=== PATIENT | female | born 1945 | race Caucasian/White ===

== ENCOUNTER 2017-03-04 22:31 | Observation (INO) | payer MEDICARE ==
[2017-03-04 23:51] LABS: BASOPHILS 0.2 % (0-2); EOSINOPHILS 1.2 % (0-7); HEMATOCRIT 41.7 % (36.0-48.0); HEMOGLOBIN 13.5 g/dL (12-16); IMMATURE GRANULOCYTES 0.2 % (0-5); MCH 30.9 pg (26.0-34.0); MCHC 32.4 g/dL (31.0-37.0); MCV 95.4 fL (80.0-100.0); MEAN PLATELET VOLUME 10.1 fL (7.4-10.4); MONOCYTES 6.8 % (2-11); NEUTROPHILS 75.6 % (40-80); PLATELET COUNT 231 10x3/uL (130-400); RBC 4.37 10x6/uL (4.00-5.40); RDW 13.6 % (11.5-14.5); WBC 10.5 10x3/uL (4.8-10.8)
[2017-03-05 00:07] LABS: ALBUMIN 3.1 g/dL (3.4-5.0); ALKALINE PHOSPHATASE 93 U/L (46-116); ALT (SGPT) 17 U/L (10-68); BILIRUBIN - TOTAL 0.36 mg/dL (0.2-1.3); CALC OSMOLALITY 290 mosm/kg (275-300); CARBON DIOXIDE 29.4 mmol/L (21.0-32.0); CHLORIDE - SERUM 104 mmol/L (98-107); CREATININE - SERUM 1.1 mg/dL (0.6-1.3); GLUCOSE 268 mg/dL (74-106); PROTEIN - SERUM 7.3 g/dL (6.4-8.2); SODIUM 139 mmol/L (136-145); UREA NITROGEN 25 mg/dL (7-18); eGFR NON AFRICAN AMERICAN 52 mL/min (90-120)
[2017-03-05 00:19] LABS: CKMB 0.6 U/L (0.0-3.6); CREATINE KINASE 34 UL (21-215); MAGNESIUM - SERUM 1.9 mg/dL (1.8-2.4); THYROID STIMULATING HORMONE 9.68 uIU/mL (0.36-3.74); TROPONIN-I < 0.017 ng/mL (0.000-0.060)
[2017-03-05 00:28] VITALS: BP 154/54
--- NOTE | 2017-03-05 00:52 | NUR ---
RECEIVED FROM ER, PT IS ALERT AND ORIENTED, PT IS UP AB BARI, IV- LAC-SL, VITALS ARE STABLE, BED IS LOW, SRX2, CALL LIGHT IN REACH, WILL CONTINUE TO MONITOR
[2017-03-05] MEDS ORDERED: PRAVACHOL20 MG PO (01:20)
[2017-03-05] MEDS ORDERED: GLIMEPIRIDE4 MG PO (01:21)
[2017-03-05] MEDS ORDERED: PLAVIX75 MG PO (01:22)
[2017-03-05] MEDS ORDERED: COREG12.5 MG PO (01:23)
[2017-03-05] MEDS ORDERED: CELEXA10 MG PO (01:24)
[2017-03-05] MEDS ORDERED: SYNTHROID75 MCG PO (01:25)
[2017-03-05] MEDS ORDERED: VITAMIN B COMPL1 TAB PO (01:25)
[2017-03-05] MEDS ORDERED: VITAMIN D31000 UNIT PO (01:26)
[2017-03-05 04:13] VITALS: BP 177/71
--- NOTE | 2017-03-05 04:23 | NUR ---
PT RESTING, CALL LIGHT IN REACH, SRX1, WILL MONITOR
[2017-03-05 07:08] LABS: CKMB 0.5 U/L (0.0-3.6); CREATINE KINASE 24 UL (21-215); TROPONIN-I < 0.017 ng/mL (0.000-0.060)
[2017-03-05 08:36] VITALS: BP 183/75
--- NOTE | 2017-03-05 09:43 | NUR ---
RESTING QUIETLY NAD NOTED
--- NOTE | 2017-03-05 11:01 | NUR ---
UP IN ROOM. DENIES ANY NEEDS. CALL LIGHT IN REACH. TELEMERTY SHOWS SR
[2017-03-05 11:28] VITALS: BP 154/66
[2017-03-05 12:57] LABS: CKMB 0.6 U/L (0.0-3.6); CREATINE KINASE 27 UL (21-215); TROPONIN-I < 0.017 ng/mL (0.000-0.060)
[2017-03-05] MEDS ORDERED: ISOSORBIDE MONO30 M1 PO (13:00)
--- NOTE | 2017-03-05 17:02 | NUR ---
PT DISCHARGED. IV DCD AND INSTRUCTIONS GIVEN. TO PRIVATE CAR PER WHEEL CHAIR
--- NOTE | 2017-03-06 10:14 | CN ---
PATIENT NAME:NADYA CALLAHAN MEDICAL RECORD: [id number] : 45 LOCATION:[facility].2122 ADMIT DATE: 03/05/17 ACCOUNT: [id number] CONSULTING PHYSICIAN: VERN NEGRO MD REFERRING PHYSICIAN: SEPIDEH WATSON MD DATE OF CONSULTATION: 03/05/2017 HISTORY OF PRESENT ILLNESS: Nadya Callahan is a 71-year-old female with a known history of coronary artery disease, status post intervention. She has a history of hypertension, recently moved here from [place], [place]. She then intermittently had problems with compliance secondary to financial issues. Her has just recently qualified for disability and this appears ____. She presented to the ER with chest pain relieved with nitroglycerin. Enzymes were negative. ECG was without acute changes. We are asked to see her concerning her cardiovascular status. PAST MEDICAL HISTORY: Includes: 1. History of coronary artery disease. 2. Diabetes mellitus. 3. Hypertension. 4. Dyslipidemia. 5. Hypothyroidism, on replacement. MEDICATIONS: Include Synthroid 75 mcg daily, Amaryl 4 mg half tab b.i.d., pravastatin 20 mg daily, carvedilol 12.5 mg b.i.d. and Plavix 75 mg daily. ALLERGIES: SULFA AND LATEX. SOCIAL HISTORY: She lives here in town, moved here from [place]. She takes care of her ADLs. Nonsmoker. REVIEW OF SYSTEMS: The patient reports easy bruising but reports no swollen glands. The patient reports no fever, no night sweats, no significant weight gain, no significant weight loss. No significant exercise tolerance. The patient reports no dry eyes, no irritation, no vision change. Patient reports no difficulty hearing and no ear pain. Patient reports no frequent nose bleeds or nose and sinus problems. Patient reports on arm pain on exertion. No shortness of breath while lying down. No history of heart murmur. Patient reports no cough, no wheezing or coughing up blood. Patient reports no abdominal pain, no vomiting. Normal appetite. No diarrhea and not vomiting blood. No nausea and no constipation. Patient reports no incontinence. No difficulty urinating. No hematuria. No increased frequency. Patient reports no muscle aches. No weakness, no arthralgias, no back pain. No swelling of the extremities. Patient reports no abnormal mole, no jaundice, no rashes. Reports no loss of consciousness. No weakness and no numbness. No seizures, dizziness, or headaches. The patient reports no depression, no sleep disturbance, feeling safe in a relationship and no alcohol abuse. Patient reports on fatigue. Reports no runny nose or sinus pressure. No itching, no hives, and no frequent sneezing. PHYSICAL EXAMINATION: GENERAL: Pleasant female in no acute distress. VITAL SIGNS: Blood pressure 183/75, pulse 63 and regular. HEENT: Normocephalic, atraumatic. NECK: No JVD or bruits. CONSULT REPORT [id number] NADYA CALLAHAN HEART: Regular. II/ systolic ejection murmur. ABDOMEN: Soft and nontender. EXTREMITIES: Pulses 2+ with no edema. NEUROLOGICAL: Grossly intact. DIAGNOSTIC DATA: ECG without acute change. Enzymes are negative. LABORATORY DATA: Significant for elevated TSH, although again, she has not been able to afford this on a regular basis. IMPRESSION: At this point in time, I discussed options with the patient. She prefers medical management. Certainly, given her negative ECG and enzymes, I have no problems with this. We will start Imdur 30 mg p.o. daily. I will see her back in the office in ____ 3 weeks. If still having angina, could revisit angiography that time. TRANSINT:[id number] Voice Confirmation ID: [id number] DOCUMENT ID: [id number] VERN NEGRO MD at 1014 CC: [id number] DICTATION DATE: 03/05/17920 CONTACT LENS BLOCKER AND CUTTER: 03/05/171856 DIS IN 03/05/17 [facility] [address] [place] [address]
== END 2017-03-05 17:18 | disposition home or self-care (01) ==
LOC: D.ER 22:31 → OBSVTIME 03-05 00:16 → D.M2 03-05 00:16
PROVIDERS: Emergency Medicine; ADMIT Family Medicine Adult Medicine
DX: R07.9 Chest pain, unspecified (principal); I25.10 Atherosclerotic heart disease of native coronary artery without angina pectoris; Z95.5 Presence of coronary angioplasty implant and graft; I10 Essential (primary) hypertension; E11.9 Type 2 diabetes mellitus without complications; E78.5 Hyperlipidemia, unspecified; E03.9 Hypothyroidism, unspecified; Z91.14 Patient's other noncompliance with medication regimen; F41.8 Other specified anxiety disorders

== ENCOUNTER 2018-01-21 18:21 | Emergency (ER) | payer MEDICARE ==
[~2018-01-21 18:21] MED LIST: CELEXA10 MG PO; COREG12.5 MG PO; GLIMEPIRIDE4 MG PO; ISOSORBIDE MONO30 M1 PO; PLAVIX75 MG PO; PRAVACHOL20 MG PO; SYNTHROID75 MCG PO; VITAMIN B COMPL1 TAB PO; VITAMIN D31000 UNIT PO
== END 2018-01-21 20:14 | disposition home or self-care (01) ==
LOC: D.ER 18:21
DX: J06.9 Acute upper respiratory infection, unspecified (principal); J20.9 Acute bronchitis, unspecified; E11.9 Type 2 diabetes mellitus without complications; I10 Essential (primary) hypertension

== ENCOUNTER 2018-07-04 09:58 | Outpatient (CLI) | payer MEDICARE ==
[~2018-07-04] VITALS: Ht 154.9 cm; Wt 111.1 kg
--- NOTE | ~2018-07-04 | CN ---
PATIENT NAME:JOLLY CALLAHAN MEDICAL RECORD: [id number] : 45 LOCATION:[facility] D.2108 ADMIT DATE: 07/04/18 ACCOUNT: [id number] CONSULTING PHYSICIAN: YANIRA OCHOA MD REFERRING PHYSICIAN: BLU GONZALEZ MD DATE OF CONSULTATION: 07/04/2018 CARDIOLOGY CONSULT DIAGNOSES: 1. Angina, unstable. 2. Coronary disease. 3. Previous PTCA and stent in 2010 at [place]. 4. Shortness of breath and dyspnea on exertion. 5. Hypertension. 6. Hyperlipidemia. 7. Noninsulin-dependent diabetes. HISTORY: Mrs. Callahan presents with increasing anginal symptomatology as well as shortness of breath over the past month. She does have history of coronary disease, previous PTCA and stent in [place] in 2010. Her EKG shows ST-T abnormalities in the lateral leads. PHYSICAL EXAMINATION: GENERAL APPEARANCE: Well-nourished, well-developed, appears stated age. Level of distress, comfortable. PSYCHIATRIC: Mental status, alert, normal affect. Orientation, oriented to time, place and person. EYES: Lids and conjunctiva, noninjected. No discharge, no pallor. ENT: Lips, teeth, gums, normal dentition. Oropharynx, no cyanosis, no pallor. NECK: Carotid arteries, bilateral normal upstroke, no bruits, no thrills. JUGULAR VEINS: No jugular venous pressure or distention. CERVICAL LYMPH NODES: Nontender, nonenlarged. THYROID: Not enlarged. Nontender. No nodules. LUNGS: Respiratory effort, unlabored. CHEST: Normal curvature. No thoracic deformity. No chest wall tenderness. Percussion, resonant. Auscultation, clear. No wheezes, no rales, no rhonchi. CARDIOVASCULAR: Precordial exam, nondisplaced. No heaves or pericardial thrills. Rate and rhythm, regular. Heart sounds, normal S1, normal S2. No S3, no gallop, no rub. Systolic murmur, not heard. Diastolic murmur, not heard. EXTREMITIES: No cyanosis, no edema. Peripheral pulses, full and equal in all extremities, except as noted. No bruits appreciated. ABDOMEN: Soft, nondistended. Normal aorta. No bruit. Nontender. No masses. Liver, nontender, no hepatomegaly. Spleen, nontender, no splenomegaly. MUSCULOSKELETAL: No joint tenderness. No joint swelling. No erythema. NEUROLOGICAL: Normal gait, normal strength, normal tone. SKIN: Warm and dry. OVERALL IMPRESSION: Anginal symptomatology in an increasing fashion. We will proceed with coronary angiography. Further care depends upon findings of the angiography. TRANSINT:[id number] Voice Confirmation ID: [id number] DOCUMENT ID: [id number] CONSULT REPORT [id number] JOLLY CALLAHAN JEFFREY MD at 1950 CC: [id number] DICTATION DATE: 07/04/18 1311 CLOTHING PATTERN PREPARER: 07/04/18 1329 DIS IN 07/06/18 [facility] [address] [place] [address]
--- NOTE | ~2018-07-04 | OP ---
PATIENT NAME: JOLLY CALLAHAN MEDICAL RECORD: [id number] :45 LOCATION:D.M2 D.2108 ADMISSION DATE:07/04/18 SURGEON: YANIRA OCHOA MD DATE OF OPERATION: 07/05/2018 PROCEDURES: 1. PTCA stent LAD. 2. PTCA diagonal. 3. Left heart catheterization. 4. Selective coronary angiography. 5. Left ventriculogram. INDICATION: Angina and coronary artery disease. PROCEDURE IN DETAIL: After informed consent was obtained and after a detailed description of the risks, benefits as well as alternative therapies, the patient elected to proceed with angiogram and angioplasty. The right femoral area was prepped and draped in normal sterile fashion. Right femoral artery was cannulated via modified Seldinger technique with placement of 6-English sheath. All catheters exchanged through this sheath. FINDINGS: The left ventriculogram was performed in standard 30-degree MATTA view, reveals inferoapical hypokinesis. Overall ejection fraction 40%. SELECTIVE CORONARY ANGIOGRAPHY: 1. Left main is with no significant angiographic disease. 2. Left anterior descending has previously placed stents. There is 80% stenosis proximal to the previously placed stent. The diagonal has 90% stenosis and then there is a second 90% stenosis in the mid LAD. 3. Left circumflex has moderate irregularities, but no flow-limiting stenosis. 4. The right coronary artery has previously placed stents, these are totally occluded. The distal right coronary fills via left to right collateral. PTCA STENT OF THE LAD: The stents used were 3.0 x 18 and 2.5 x 22. These are both [place] stents. The diagonal was addressed with a 2.0 balloon. Result was 0% residual throughout. OVERALL IMPRESSION: Successful percutaneous transluminal coronary angioplasty stent of the left anterior descending going from 90% initial stenosis to 0% residual. TRANSINT:[id number] Voice Confirmation ID: [id number] DOCUMENT ID: [id number] YANIRA OCHOA MD at 1950 CC: [id number] DICTATION DATE: 07/05/18 1326 RESEARCH AND INSIGHTS EXECUTIVE: 07/05/18 1343 DIS IN 07/06/18 [place] [address]
--- NOTE | ~2018-07-04 | EC ---
PATIENT:JOLLY CALLAHAN DATE OF SERVICE: 07/04/18 SEX: F MEDICAL RECORD: [id number] DATE OF : 45 LOCATION:D.M2 D.210 AGE OF PATIENT: 73 ADMISSION DATE: 07/04/18 REFERRING PHYSICIAN: INTERPRETING PHYSICIAN: YANIRA SHEA MD ECHOCARDIOGRAM REPORT ECHO CHARGES 4 ECHO COMPLETE Date: 07/04/18 CLINICAL DIAGNOSIS: CHF ECHOCARDIOGRAPHIC MEASUREMENTS (adult normal given) AC root (d.<3.7cm) 3.2 cm LV Septum d (<1.2 cm> 1.6 cm Valve Excursion 1.4 cm LV Septum (systole) 1.7 cm Left Atria (s.<4.0cm> 3.9 cm LVPW d(<1.2cm) 1.3 cm RV (d.<2.3cm) 3.3 cm LVPW (sytole) 1.6 cm LV diastole(<5.6CM) 6.0 cm MV E-F(>70mm/sec) cm LV systole 4.7 cm LVOT Diameter 1.7 cm MV exc.(>10mm) cm Est.ejection fraction (50-75%) % DOPPLER: LVIT cm/sec A 51.0 cm/sec E 101 cm/sec LA cm/sec RVSP 46 mmHg LVOT 98 cm/sec AOP1/2T m/s Asc. Ao 129 cm/sec RVOT 79 cm/sec RA cm/sec PA 93 cm/sec AV Gradient Peak 6.86 mmHg AV Mean 3.021mmHg AV Area 1.9 cm MV Gradient Peak 6.36 mmHg MV Mean 2.15 mmHg MV Area cm COMMENTS: Outside Sales Executive: Buddy ANTHONY Sandblaster Paint Sprayer: 1 Dr. Shea TAPE# PACS Pericardial Effusion N DATE OF SERVICE: 07/04/2018 ECHOCARDIOGRAM FINDINGS: 1. Left ventricular chamber size is mildly dilated. Left ventricular systolic function is normal. Overall ejection fraction estimated at 55%. 2. Left atrium is within normal limits at 3.9 cm. Right atrium and right ventricle chamber sizes are upper limits of normal. 3. Valvular structures have normal structure and motion. ECHOCARDIOGRAM REPORT [id number] JOLLY CALLAHAN 4. Doppler interrogation reveals mild mitral regurgitation, mild tricuspid regurgitation, no other valvular insufficiency or stenosis; however, pulmonary systolic pressure is mildly elevated estimated at 46 mmHg. 5. No evidence of pericardial effusion or left ventricular thrombus. TRANSINT:[id number] Voice Confirmation ID: [id number] DOCUMENT ID: [id number] YANIRA SHEA MD at 1950 CC: [id number] DICTATION DATE: 07/04/18 1638 COOK FISH EGGS: 07/04/18 1646 DIS IN 07/06/18 [facility] [address] [place] [id number]
--- NOTE | ~2018-07-04 | HEMODYNAMI ---
PATIENT:JOLLY CALLAHAN MEDICAL RECORD: [id number] : 45 [facility] ADMISSION DATE: 07/04/18 Generatedon:07/06/201810:46 Patient name: JOLLY CALLAHAN Patient #: [id number] SSN: D OB: 1945 Date of study: 07/05/2018 Page: Of Hemodynamic Procedure Report Patient Data Patient Demographics Procedure consent was obtained First Name: JOLLY Gender: Female Last Name: L[place]ON : 1945 Patient #: [id number] Age: 73 year(s) Race: Unknown Additional ID: [id number] Contact details Address: [address] [place] [address] State: [place] City: [facility] Zip code: [address] Past Medical History Allergies Allergen Reaction Date Comments Reported Other allergy 07/05/2018 SULFA, LATEX, NATURAL RUBBER Admission Admission Data Admission Date: 05/10/2018 Admission Time: 11:00 Room #: D.2108 Lab Results Lab Result Date: 07/05/2018 Lab Result Time: 0:00 Biochemistry Name Units Result Min Max BUN mg/dl 23 --(----)-* 7 18 Creatinine mg/dl 0.9 --(-*--)-- 0.6 1.3 CBC Name Units Result Min Max Hemoglobin g/dl 12.5 *-(----)-- 13.5 17.5 Procedure Procedure Types Cath Procedure Diagnostic Procedure C [facility] w/Coronaries PCI Procedure Coronary Stent Coronary Stent Initial PTCA PTCA Additional Procedure Description Procedure Date Procedure Date: 07/05/2018 Procedure Start Time: 13:04 Procedure End Time: 13:26 Procedure Staff Name Function Luciana De Jesus RT Monitor Kenney Cole RN Nurse Stephan Shea MD Performing Physician Kathi Soler RT Scrub Jarrod Mcgee RT High School Business Teacher Jarrod Mcgee RT Monitor Procedure Data Cath Procedure Fluoroscopy Diagnostic fluoroscopy Total fluoroscopy Time: 5.9 time: 5.9 min min Diagnostic fluoroscopy Total fluoroscopy dose: dose: 1272 mGy 1272 mGy Contrast Material Contrast Material Type Amount (ml) Isovue 300 142 Entry Location Entry Primary Successful Side Size Upsize Upsize Entry Closure Succes sful Closure Location (Fr) 1 (Fr) 2 (Fr) Remarks Device Remarks Femoral Right 5 Fr Exoseal artery Diagnostic catheters Device Type Used For End Catheter Placement MULTIPACK Pigtail 5 Fr LV Angiography catheter MULTIPACK JL 4.0 5Fr Left Coronary catheter Angiography MULTIPACK 3DRC 5Fr Right Coronary catheter Angiography Procedure Complications No complications Procedure Medications Medication Administration Route Dosage Heparin Flush Bag added to field 2 bags (1000units/500ml NS) Oxygen etCO2 Nasal cannula 2 l/min Lidocaine 2% added to field 4 ml Plavix P.O. 75 mg Versed I.V. 1 mg Fentanyl I.V. 50 mcg Heparin Bolus I.V. 4000 units Versed I.V. 1 mg Fentanyl I.V. 50 mcg Hemodynamics Rest HGB: 12.5 (g/dl) Heart Rate: 82 (bpm) Snapshots Pre Cath Intra NCS Post Cath Vital Signs Time Heart Resp SPO2 etCO2 NIBP (mmHg) Rhythm Pain Sedation Rate (ipm) (%) (mmHg) Status Level (bpm) 12:33:27 66 21 98 0 172/93(146) A-Flutter 0 (11) 10(A) , No pain 12:38:26 80 15 98 0 176/103(151) A-Flutter 0 (11) 10(A) , No pain 12:43:27 85 21 99 0 178/105(153) A-Flutter 0 (11) 10(A) , No pain 12:48:29 81 15 100 0 184/105(146) A-Flutter 0 (11) 10(A) , No pain 12:53:26 77 14 97 0 147/82(120) A-Flutter 0 (11) 10(A) , No pain 12:58:20 78 14 94 0 156/86(132) A-Flutter 0 (11) 10(A) , No pain 13:03:07 77 15 96 0 124/75(110) A-Flutter 0 (11) 9(A) , No pain 13:07:54 67 14 97 0.7 141/86(123) A-Flutter 0 (11) 9(A) , No pain 13:12:45 80 13 97 3 156/91(136) A-Flutter 0 (11) 9(A) , No pain 13:17:42 81 14 98 0 161/83(133) A-Flutter 0 (11) 9(A) , No pain 13:22:39 80 27 99 0 173/95(150) A-Flutter 0 (11) 10(A) , No pain 13:26:14 78 15 98 17.2 171/83(118) A-Flutter 0 (11) 10(A) , No pain Medications Time Medication Route Dose Verified Delivered Reason Notes Effectiveness by by 12:49:31 Heparin Flush added 2 Buffie used for Bag to bags Cole generator switchboard operator (1000units/500ml field NS) 12:49:57 Oxygen etCO2 2 Buffie used for Nasal l/min Kelsey generator switchboard operator cannula 12:50:20 Lidocaine 2% added 4 ml Buffie used for to Kelsey generator switchboard operator field 12:58:12 Plavix P.O. 75 mg Stephan Blairie for Shabbir Cole RN antiplatelet therapy 13:00:48 Versed I.V. 1 mg Stephan Buffie for sedation Shabbir Cole RN 13:00:54 Fentanyl I.V. 50 Stephan Buffie for sedation mcg Shabbir Cole RN 13:06:05 Versed I.V. 1 mg Stephan Buffie for sedation Shabbir Cole RN 13:06:08 Fentanyl I.V. 50 Stephanallison Pintoie for sedation mcg Shabbir Cole RN 13:10:27 Heparin Bolus I.V. 4000 Stephan Buffie for verif ied units Shabbir Cole RN anticoagulation with dr shea Procedure Log Time Note 11:57:14 Signed procedure consent form obtained from patient. 11:57:15 Time tracking: Regular hours (M-F 7:00 - 5:00) 11:57:19 Plan of Care:Hemodynamics will remain stable., Cardiac rhythm will remain stable., Comfort level will be maintained., Respiratory function will remain adequate., Patient/ family verbilizes understanding of procedure., Procedure tolerated without complication., Recovers from procedure without complications.. 11:57:57 H&P Date Dictated: 07/04/2018 Within 30 days and on chart.. 12:00:36 Patient allergic to Other allergySULFA, LATEX, NATURAL RUBBER 12::16 Lab Result : Hemoglobin 12.5 g/dl 12::16 Lab Result : Creatinine 0.9 mg/dl 12::16 Lab Result : BUN 23 mg/dl 12:08:30 Kathi Soler RT(R) sent for patient. Start room use. 12:28:14 Patient received from Med II to CCL 1 Alert and oriented. Tansferred to table in Supine position. 12:28:16 Correct patient and procedure confirmed by team. 12:28:16 Warm blankets applied, and jaspreet hugger turned on for patient comfort. 12:28:17 ECG and BP/O2 sat monitors applied to patient. 12:29:13 FAILED JUAN MANUEL'S 12:30:42 Vital chart was started 12:30:43 Full Disclosure recording started 12:34:51 Baseline sample Acquired. 12:35:28 Baseline sample Acquired. 12:35:33 Rhythm: atrial flutter 12:35:43 Pre-procedure instructions explained to patient. 12:35:44 Pre-op teaching completed and patient verbalized understanding. 12:36:36 Family in patients room. 12:36:39 Patient NPO since Midnight. 12:36:41 Is the patient allergic to Iodine/contrast media? No. 12:36:44 Was the patient premedicated? No 12:40:12 Is patient on blood thinner?Unknown 12:40:14 Patient diabetic? Yes. 12:40:16 If diabetic: On Metformin? No 12:40:17 ----Pre-sedation anethsthesia assessment.---- 12:40:20 Previous problem with sedation/anesthesia? No ? 12:40:22 Snore? No 12:40:23 Sleep apnea? No 12:40:25 Deviated septum? No 12:40:26 Opens mouth fully? Yes 12:40:27 Sticks out tongue? Yes 12:40:29 Airway obstruction? No ? 12:40:33 Dentures? No ? 12:40:35 Pre procedure: right dorsailis pedis pulse 1+ Palpable, but thready & weak; easily obliterated 12:40:43 Modified Juan Manuel's test Ulnar > 7 seconds. 12:40:47 Patient pain scale 0/10 ?. 12:40:56 IV patent on arrival in left forearm with 0.9% NaCl at 10ml/hr. 12:41:01 Lab results completed and on chart. 12:41:05 Right groin area was prepped with chlora-prep and draped in sterile fashion 12:41:06 Sharps counted by scrub and verified by R.N. 12:41:06 Alarms reviewed by R. N. 12:45:23 Final Timeout: patient, procedure, and site verified with staff and physician. All members of the team are in agreement. 12:45:25 Right groin site verified by team. 12:45:28 Physical assessment completed. ASA score P 2 - A patient with mild systemic disease as per Stephan Shea MD. 12:45:30 Sedation plan: IV Moderate Sedation Medication:Versed, Fentanyl 12:45:49 Zero performed for pressure channel P1 12:45:59 Use device set Femoral Dx 12:46:00 Medline Cath Pack ([id number]) opened to sterile field. 12:46:00 Bag Decanter (2002S) opened to sterile field. 12:46:00 ACIST Syringe (88097) opened to sterile field. 12:46:01 DIAGNOSTIC WIRE .035 260cm J wire (895451) opened to sterile field. 12:46:05 ACIST Manifold (87930) opened to sterile field. 12:46:05 ACIST Hand Control (94628) opened to sterile field. 12:46:06 DIAGNOSTIC Multipack 5Fr catheter set (MZ3451) opened to sterile field. 12:46:07 Tegaderm 4 x 4 (1626W) opened to sterile field. 12:46:08 SHEATH Prelude 5Fr 0.035 (EBW-0D-83-035) opened to sterile field. 12:49:31 Heparin Flush Bag (1000units/500ml NS) 2 bags added to field was administered by Kenney Cole RN; used for procedure; 12:49:57 Oxygen 2 l/min etCO2 Nasal cannula was administered by Kenney Cole RN; used for procedure; 12:50:20 Lidocaine 2% 4 ml added to field was administered by Kenney Cole RN; used for procedure; 12:53:43 IV CATHETER 20g opened to sterile field. 12:54:48 IV started by Kenney Cole RN inleft hand with a 22 gauge IV catheter with 0.9% NaCl at KVO. 12:57:37 IV CATHETER 22g opened to sterile field. 12:58:12 Plavix 75 mg P.O. was administered by Kenney Cole RN; for antiplatelet therapy; 13:00:48 Versed 1 mg I.V. was administered by Kenney Cole RN; for sedation; 13:00:54 Fentanyl 50 mcg I.V. was administered by Kenney Cole RN; for sedation; 13:03:57 Procedure started. 13:04:00 Local anesthetic to right femoral artery with Lidocaine 2% by Stephan Shea MD.INITIAL ACCESS ONLY 13:04:31 A 5 Fr sheath was inserted into the Right Femoral artery 13:05:15 A MULTIPACK Pigtail 5 Fr catheter was advanced over the wire and used for LV Angiography. 13:05:34 LV gram done using MATTA 13:05:37 Injector settings: Ml/sec: 10, Volume: 20, 13:05:44 EF : 40 % 13:05:57 Catheter removed. 13:06:05 Versed 1 mg I.V. was administered by Kenney Cole RN; for sedation; 13:06:08 Fentanyl 50 mcg I.V. was administered by Kenney Cole RN; for sedation; 13:06:22 A MULTIPACK JL 4.0 5Fr catheter was advanced over the wire and used for Left Coronary Angiography. 13:06:52 SHEATH Prelude 6Fr 0.035 (ETT-6D-04-035) opened to sterile field. 13:06:58 CHOICE PT Extra Support 182cm wire ([id number]) opened to sterile field. 13:07:00 INFLATOR Merit BasixCompak (HY4216) opened to sterile field. 13:07:37 Catheter removed. 13:08:47 A MULTIPACK 3DRC 5Fr catheter was advanced over the wire and used for Right Coronary Angiography. 13:09:09 RCA angiography performed. 13:09:21 Catheter removed. 13:10:00 GUIDE 6FR XBLAD 4.0 catheter ([id number]) opened to sterile field. 13:10:27 Heparin Bolus 4000 units I.V. was administered by Kenney Cole RN; for anticoagulation; verified with dr shea 13:10:38 6 Fr XBLAD 4 guide catheter was inserted over the wire 13:12:38 CPTES wire advanced. 13:13:23 Place stent Inflation Number: 1 A ROSALVA RX 2.25 x 18 stent ([id number]) was prepped and advanced across the Mid LAD. The stent was deployed at 17 VARINDER for 0:10 (min:sec). 13:13:33 Stent catheter was removed intact over wire. 13:14:11 CHOICE PT Extra Support 182cm wire ([id number]) opened to sterile field. 13:14:24 CPTES wire advanced. 13:14:37 TO THE DIAG 13:16:14 The ROSALVA RX 2.25 x 18 stent ([id number]) was advanced then removed because of failure to cross lesion 13:17:37 Inflate balloon Inflation number: 1 A EUPHORA 2.0 x 10 Balloon ([id number]) was prepped and advanced across the 1st Diag, then inflated to 13 VARINDER for 0:10 (min:sec). 13:17:48 Inflation number: 2 The EUPHORA 2.0 x 10 Balloon ([id number]) was reinflated across the 1st Diag, to 17 VARINDER for 0:10 (min:sec). 13:18:45 Balloon removed over the wire. 13:19:43 Wire removed. 13:19:54 DIAG 13:20:09 Place stent Inflation Number: 2 A ROSALVA RX 3.0 x 18 stent ([id number]) was prepped and advanced across the Mid LAD. The stent was deployed at 15 VARINDER for 0:10 (min:sec). 13:20:29 Inflation number: 3 The stent balloon was then re-inflated across the Mid LAD to 19 VARINDER for 0:18 (min:sec). 13:20:34 Stent catheter was removed intact over wire. 13:20:35 Wire removed. 13:20:36 Guide catheter removed. 13:20:45 Contrast amount:Isovue 300 142ml. 13:20:52 Sheath removed intact; hemostasis achieved with Exoseal to the Right Femoral artery. 13:20:58 Procedure ended.(Physican Out) 13:21:27 Fluoroscopy time 05.90 minutes. 13:22:28 Fluoroscopy dose: 1272 mGy 13:22:28 Flurop Dose total: 1272 13:22:30 Sharps counted by scrub and verified by R.N. 13:22:32 Insertion/operative site no bleeding no hematoma. 13:22:34 Post-op/insertion site Right Femoral artery dressed using a 4 x 4 and Tegaderm. 13:22:37 Post right femoral artery:stable 13:22:40 Post Procedure Pulses reassessed and unchanged 13:22:45 Post procedure: right dorsailis pedis pulse 2+ Normal; easily identifiable; not easily obliterated. 13:22:50 Post procedure rhythm: sinus rhythm 13:22:54 Post procedure instruction explained to patient.Patient verbalizes understanding. 13:22:56 Procedure and supply charges have been captured, reviewed, submitted and are correct. 13:23:13 Procedure type changed to Cath procedure, Diagnostic procedure, LHC, LHC w/Coronaries, PCI procedure, Coronary Stent, Coronary Stent Initial, PTCA, PTCA Additional 13:23:22 Procedure Complication : No complications 13:24:38 EXOSEAL 6Fr (EX600) opened to sterile field. 13:25:07 Vital chart was stopped 13:25:09 See physician's report for complete and final results. 13:26:37 Report given to PCU. 13:26:43 Patient transfered to PCU with Bed. 13:26:45 Full Disclosure recording stopped 13:26:45 Procedure ended. 13:26:53 ACC-PCI Only Patient was given prescriptions, or instructed by Stephan Shea MD to start/continue the following medications upon discharge: Plavix 13:26:55 End room use (Document Last) Intervention Summary Intervention Notes Time ActionType Lesion and Equipment Used Action# Pressure Duration Attributes 13:13:23 Place stent Mid LAD ROSALVA RX 2.25 x 1 17 00:10 18 stent ([id number]) 13:16:14 Discard ROSALVA RX 2.25 x Stent 18 stent ([id number]) 13:17:37 Inflate 1st Diag EUPHORA 2.0 x 1 13 00:10 balloon 10 Balloon ([id number]) 13:17:48 Reinflate 1st Diag EUPHORA 2.0 x 2 17 00:10 balloon 10 Balloon ([id number]) 13:20:09 Place stent Mid LAD ROSALVA RX 3.0 x 2 15 00:10 18 stent ([id number]) 13:20:29 Reinflate Mid LAD ROSALVA RX 3.0 x 3 19 00:18 stent 18 stent balloon ([id number]) Device Usage Item Name Manufacture Quantity Catalog Number Hospital Part Current Minimal Lot# / Charge Number Stock Stock Serial# Code ACIST Syringe Acist 1 95075 238376 459058 001903 20 (86553) Medical Systems Inc Bag Decanter Microtek 1 080292 16804 123597 5 () Medical Inc. Medline Cath Cardinal 1 [id number] 004266 40196 899868 5 Pack Health ([id number]) DIAGNOSTIC WIRE [facility] 1 383662 907231 245301 701408 30 .035 260cm J wire (544409) ACIST Hand Acist 1 41947 348193 642755 547960 5 Control (31117) Medical Systems Inc ACIST Manifold Acist 1 58694 095955 326644 246871 5 (57820) Medical Systems Inc DIAGNOSTIC Cardinal 1 AP1324 830867 95844 842942 30 Multipack 5Fr Health catheter set (CV2148) Tegaderm 4 x 4 3M 1 1626W 095449 833217 041082 5 (1626W) SHEATH Prelude Merit 1 QZR-7B-84-035 289458 593680 019496 5 5Fr 0.035 Medical (LQY-9P-44-035) IV CATHETER 20g B. Crowe 1 9962785-86 971551 149285 476776 5 IV CATHETER 22g B. Crowe 1 8107074-07 932262 274664 766522 5 MULTIPACK Cardinal 1 753268 5 Pigtail 5 Fr Health catheter MULTIPACK JL Cardinal 1 661268 5 4.0 5Fr Health catheter SHEATH Prelude Merit 1 YIA-1U-84-35 299682 2707215 813486 5 6Fr 0.035 Medical (TZS-8K-02-035) CHOICE PT Extra Truchas 2 [id number] 186135 228130 713188 5 Support 182cm Scientific wire (3702476Q1) INFLATOR Merit Merit 1 MF4399 383858 583729 828118 15 [place] (KW4611) MULTIPACK 3DRC Cardinal 1 536615 5 5Fr catheter Health GUIDE 6FR XBLAD Cardinal 1 18185233 331909 861351 450756 3 4.0 catheter Health (61750474) ROSALVA RX 2.25 x Medtronic 1 [id number] 128337 3827638 991221 5 [id number] 18 stent ([id number]) EUPHORA 2.0 x Medtronic 1 [id number] 607038 840877 221259 5 [id number] 10 Balloon ([id number]) ROSALVA RX 3.0 x Medtronic 1 [id number] 133974 8003583 178519 5 [id number] 18 stent ([id number]) EXOSEAL 6Fr Cardinal 1 EX600 165793 411339 193897 10 (EX600) Health Signature Audit [place] Stage Time Signature Unsigned Intra-Procedure 07/05/2018 Jarrod Suit 1:28:46 PM RT(R); Luciana Counts RT(R) Signatures Monitor : Luciana Signature : Counts RT Date : Time : Monitor : Jarrod Mcgee RT Signature : Date : Time : [place] [id number] [place] [address]
[2018-07-04 10:31] VITALS: BP 137/53
[2018-07-04 10:31] LABS: BASOPHILS 0.5 % (0-2); EOSINOPHILS 3.1 % (0-7); HEMATOCRIT 38.6 % (36.0-48.0); HEMOGLOBIN 12.5 g/dL (12-16); IMMATURE GRANULOCYTES 0.2 % (0-5); LYMPHOCYTES 27.8 % (15-50); MCH 30.4 pg (26.0-34.0); MCHC 32.4 g/dL (31.0-37.0); MCV 93.9 fL (80.0-100.0); MEAN PLATELET VOLUME 9.7 fL (7.4-10.4); MONOCYTES 9.8 % (2-11); NEUTROPHILS 58.6 % (40-80); PLATELET COUNT 204 10x3/uL (130-400); RBC 4.11 10x6/uL (4.00-5.40); RDW 15.2 % (11.5-14.5); WBC 5.9 10x3/uL (4.8-10.8)
[2018-07-04 10:46] LABS: ALBUMIN 3.1 g/dL (3.4-5.0); ALKALINE PHOSPHATASE 72 U/L (46-116); ALT (SGPT) 17 U/L (10-68); BILIRUBIN - TOTAL 0.85 mg/dL (0.2-1.3); CALC OSMOLALITY 289 mosm/kg (275-300); CALCIUM 8.1 mg/dL (8.5-10.1); CHLORIDE - SERUM 107 mmol/L (98-107); CREATININE - SERUM 0.9 mg/dL (0.6-1.3); GLUCOSE 182 mg/dL (74-106); POTASSIUM - SERUM 4.1 mmol/L (3.5-5.1); PROTEIN - SERUM 7.1 g/dL (6.4-8.2); SODIUM 141 mmol/L (136-145); UREA NITROGEN 23 mg/dL (7-18); eGFR NON AFRICAN AMERICAN 65 mL/min (90-120)
[2018-07-04 10:57] LABS: CKMB 0.6 U/L (0.0-3.6); CREATINE KINASE 37 UL (21-215); PRO BNP 1914 pg/mL (0-125); TROPONIN-I < 0.017 ng/mL (0.000-0.060)
[2018-07-04 11:01] VITALS: BP 135/57
[2018-07-04 12:11] LABS: CREATINE KINASE 37 UL (21-215)
[2018-07-04 12:13] LABS: TROPONIN-I < 0.017 ng/mL (0.000-0.060)
[2018-07-04 13:26] VITALS: BP 171/81; BMI 46.4
[2018-07-04 15:50] VITALS: BP 171/81
[2018-07-04 19:30] LABS: CKMB 0.6 U/L (0.0-3.6); CREATINE KINASE 41 UL (21-215)
[2018-07-04 19:38] LABS: TROPONIN-I < 0.017 ng/mL (0.000-0.060)
[2018-07-04 20:00] VITALS: BP 161/60
[2018-07-05] VITALS (7 sets, daily range): BP systolic 133–167; BP diastolic 61–85; Ht 154.9 cm; Wt 111.1 kg
[2018-07-05 01:57] LABS: CKMB 0.5 U/L (0.0-3.6); CREATINE KINASE 34 UL (21-215); TROPONIN-I < 0.017 ng/mL (0.000-0.060)
[2018-07-06 04:00] VITALS: BP 101/45
[2018-07-06 08:19] VITALS: BP 123/54
[2018-07-06] MEDS ORDERED: BETAPACE 80 MG80 MG PO (11:56)
[2018-07-06] MEDS ORDERED: LASIX40 MG PO (12:11)
[2018-07-06 12:18] VITALS: BP 123/54
== END 2018-07-06 16:17 | disposition home or self-care (01) ==
LOC: OBSVTIME → D.ER 09:58 → D.OPS 09:58 → D.ER 12:30 → OBSVTIME 13:09 → D.M2 13:09 → EDSTATUS 07-05 10:45 → D.M2 07-06 16:17 → D.OPS 07-06 16:17
PROVIDERS: Family Medicine
DX: I25.110 Atherosclerotic heart disease of native coronary artery with unstable angina pectoris (principal); Z95.5 Presence of coronary angioplasty implant and graft; T82.855A Stenosis of coronary artery stent, initial encounter; Y83.8 Other surgical procedures as the cause of abnormal reaction of the patient, or of later complication, without mention of misadventure at the time of the procedure; I11.0 Hypertensive heart disease with heart failure; I50.9 Heart failure, unspecified; E78.5 Hyperlipidemia, unspecified; E11.65 Type 2 diabetes mellitus with hyperglycemia; E03.9 Hypothyroidism, unspecified; I48.91 Unspecified atrial fibrillation

== ENCOUNTER 2018-12-28 00:35 | Inpatient (IN) | payer MEDICARE ==
[~2018-12-28] VITALS: Ht 154.9 cm; Wt 116.4 kg
--- NOTE | ~2018-12-28 | EC ---
PATIENT:JOLLY CALLAHAN DATE OF SERVICE: 12/28/18 SEX: F MEDICAL RECORD: [id number] DATE OF : 45 LOCATION:D.M3 D.120 AGE OF PATIENT: 73 ADMISSION DATE: 12/28/18 REFERRING PHYSICIAN: INTERPRETING PHYSICIAN: YANIRA OCHOA MD ECHOCARDIOGRAM REPORT ECHO CHARGES 4 ECHO COMPLETE Date: 12/28/18 CLINICAL DIAGNOSIS: CHF HX CAD/STENTS ECHOCARDIOGRAPHIC MEASUREMENTS (adult normal given) AC root (d.<3.7cm) 3.6 cm LV Septum d (<1.2 cm> 1.3 cm Valve Excursion 1.7 cm LV Septum (systole) 1.6 cm Left Atria (s.<4.0cm> 4.0 cm LVPW d(<1.2cm) 1.6 cm RV (d.<2.3cm) 45.0 cm LVPW (sytole) 1.9 cm LV diastole(<5.6CM) 4.6 cm MV E-F(>70mm/sec) cm LV systole 3.5 cm LVOT Diameter cm MV exc.(>10mm) cm Est.ejection fraction (50-75%) % DOPPLER: LVIT cm/sec A 54.0 cm/sec E 127 cm/sec LA cm/sec RVSP 26 mmHg LVOT 89 cm/sec AOP1/2T m/s Asc. Ao 146 cm/sec RVOT 93 cm/sec RA cm/sec PA 104 cm/sec AV Gradient Peak 8.49 mmHg AV Mean 4.57 mmHg AV Area 1.5 cm MV Gradient Peak 8.73 mmHg MV Mean 2.58 mmHg MV Area cm COMMENTS: Inking Machine Tender: 2 ADELA ANTHONY Embedded Engineer: 3 Dr. Ang TAPE# PACS Pericardial Effusion N DATE OF SERVICE: PROCEDURE: Echocardiogram. FINDINGS: 1. Left ventricular chamber size is within normal limits. Left ventricular systolic function is normal. Overall ejection fraction estimated at 55%. 2. Left atrium is upper limits of normal at 4.0 cm. Right atrium and right ventricular chamber sizes are mildly dilated. 3. Valvular structures have normal structure and motion. ECHOCARDIOGRAM REPORT [id number] JOLLY CALLAHAN 4. Doppler interrogation reveals mild mitral regurgitation, trace tricuspid regurgitation, no other valvular insufficiency or stenosis. Pulmonary systolic pressure is normal at 26 mmHg. 5. No evidence of pericardial effusion or left ventricular thrombus. TRANSINT:[id number] Voice Confirmation ID: [id number] DOCUMENT ID: [id number] YANIRA OCHOA MD CC: [id number] DICTATION DATE: 12/29/18 1135 MIGRATORY GAME BIRD BIOLOGIST: 12/29/18 1206 ADM IN [facility] [address] [place] [address]
[~2018-12-28 00:35] MED LIST changes: +BETAPACE 80 MG80 MG PO; +LASIX40 MG PO
[2018-12-28] MEDS ORDERED: LASIX20 MG PO (00:48)
[2018-12-28] MEDS ORDERED: K-TAB10 MEQ PO (00:49)
--- NOTE | 2018-12-28 01:00 | NUR ---
PT RECEIVING BREATHING TREATMENT. NOTIFIED RT OF ABG ORDER.
[2018-12-28 01:03] LABS: BASOPHILS 0.4 % (0-2); EOSINOPHILS 2.2 % (0-7); HEMATOCRIT 40.3 % (36.0-48.0); HEMOGLOBIN 12.7 g/dL (12-16); IMMATURE GRANULOCYTES 0.2 % (0-5); LYMPHOCYTES 24.2 % (15-50); MCH 30.1 pg (26.0-34.0); MCHC 31.5 g/dL (31.0-37.0); MCV 95.5 fL (80.0-100.0); MEAN PLATELET VOLUME 9.6 fL (7.4-10.4); MONOCYTES 8.7 % (2-11); NEUTROPHILS 64.3 % (40-80); PLATELET COUNT 237 10x3/uL (130-400); RBC 4.22 10x6/uL (4.00-5.40); RDW 14.6 % (11.5-14.5); WBC 8.5 10x3/uL (4.8-10.8)
[2018-12-28 01:23] LABS: APTT 27.8 SECONDS (22.8-39.4); INR 1.1 (0.85-1.17); PROTIME 13.7 SECONDS (11.6-15.0)
[2018-12-28 01:27] LABS: ALBUMIN 3.3 g/dL (3.4-5.0); ALKALINE PHOSPHATASE 100 U/L (46-116); ALT (SGPT) 12 U/L (10-68); BILIRUBIN - TOTAL 0.64 mg/dL (0.2-1.3); CALC OSMOLALITY 281 mosm/kg (275-300); CALCIUM 8.4 mg/dL (8.5-10.1); CARBON DIOXIDE 30.5 mmol/L (21.0-32.0); CHLORIDE - SERUM 105 mmol/L (98-107); CREATININE - SERUM 0.9 mg/dL (0.6-1.3); POTASSIUM - SERUM 4.4 mmol/L (3.5-5.1); PROTEIN - SERUM 7.6 g/dL (6.4-8.2); SODIUM 140 mmol/L (136-145); UREA NITROGEN 16 mg/dL (7-18); eGFR NON AFRICAN AMERICAN 65 mL/min (90-120)
[2018-12-28 01:29] LABS: GLUCOSE 129 mg/dL (74-106)
[2018-12-28 01:41] LABS: CKMB 0.7 U/L (0.0-3.6); CREATINE KINASE 39 UL (21-215); PRO BNP 2835 pg/mL (0-125); TROPONIN-I < 0.017 ng/mL (0.000-0.060)
--- NOTE | 2018-12-28 04:20 | NUR ---
1ST ATTEMPT TO TRY AND CALL REPROT. NO ANSWER AT STATION.
[2018-12-28 05:03] VITALS: BP 139/80; BMI 49.8
--- NOTE | 2018-12-28 05:20 | NUR ---
APPLIED TELEMETRY ORDERED
[2018-12-28 05:39] VITALS: BP 138/80
--- NOTE | 2018-12-28 07:20 | NUR ---
INITIAL ROUNDING ON THE PATIENT, SHE IS AWAKE, ALERT AND DENIES PAIN. CAREGIVERS INTRODUCED, O2 VIA NC IN [place]
[2018-12-28 10:11] VITALS: BP 126/54
[2018-12-28 13:30] VITALS: BMI 49.7
[2018-12-28 14:35] VITALS: BP 132/66
[2018-12-28 17:42] VITALS: BP 109/50
[2018-12-28 20:00] VITALS: BP 105/37
[2018-12-29] VITALS: BP 116/68; BP 131/64
[2018-12-29 04:00] VITALS: BP 124/55
[2018-12-29 05:24] LABS: BASOPHILS 0.4 % (0-2); EOSINOPHILS 2.6 % (0-7); HEMATOCRIT 36.9 % (36.0-48.0); HEMOGLOBIN 11.8 g/dL (12-16); IMMATURE GRANULOCYTES 0.1 % (0-5); LYMPHOCYTES 21.4 % (15-50); MCH 30.2 pg (26.0-34.0); MCV 94.4 fL (80.0-100.0); MEAN PLATELET VOLUME 9.8 fL (7.4-10.4); MONOCYTES 12.3 % (2-11); NEUTROPHILS 63.2 % (40-80); PLATELET COUNT 207 10x3/uL (130-400); RBC 3.91 10x6/uL (4.00-5.40); RDW 14.6 % (11.5-14.5); WBC 6.8 10x3/uL (4.8-10.8)
[2018-12-29 05:37] LABS: ALBUMIN 3.1 g/dL (3.4-5.0); ANION GAP 13.2 mmol/L (8-16); BILIRUBIN - TOTAL 1.2 mg/dL (0.2-1.3); CALCIUM 8.4 mg/dL (8.5-10.1); CARBON DIOXIDE 28.6 mmol/L (21.0-32.0); CREATININE - SERUM 1.1 mg/dL (0.6-1.3); POTASSIUM - SERUM 3.8 mmol/L (3.5-5.1); PROTEIN - SERUM 7.4 g/dL (6.4-8.2)
--- NOTE | 2018-12-29 07:10 | NUR ---
INITIAL ROUNDING ON THE PATIENT, SHE IS RESTING IN BED, LIGHTS OFF, SHE DENIES PAIN, NO S/S OF DISTRESS NOTED
[2018-12-29 08:00] VITALS: BP 135/57
[2018-12-29 10:22] VITALS: Ht 154.9 cm; Wt 116.4 kg
[2018-12-29 13:08] VITALS: BP 123/57
[2018-12-29 17:14] VITALS: BP 127/56
[2018-12-29 20:00] VITALS: BP 139/57
[2018-12-30 04:00] VITALS: BP 91/46
--- NOTE | 2018-12-30 07:10 | NUR ---
INITIAL ROUNDING, PATIENT AWAKE, ALERT, RESTING IN BED SUPINE. SHE DENIES PAIN. NO S/S OF SOB NOTED. CALL LIGHT IN HER HAND. O2 VIA NC IN PLACE. TELE ON AND READING A FLUTTER.
[2018-12-30 07:28] LABS: BASOPHILS 0.4 % (0-2); EOSINOPHILS 3.1 % (0-7); HEMATOCRIT 34.7 % (36.0-48.0); HEMOGLOBIN 11.1 g/dL (12-16); IMMATURE GRANULOCYTES 0.1 % (0-5); LYMPHOCYTES 24.9 % (15-50); MCH 30.1 pg (26.0-34.0); MEAN PLATELET VOLUME 9.8 fL (7.4-10.4); MONOCYTES 14.5 % (2-11); PLATELET COUNT 196 10x3/uL (130-400); RBC 3.69 10x6/uL (4.00-5.40); RDW 14.5 % (11.5-14.5); WBC 6.8 10x3/uL (4.8-10.8)
[2018-12-30 07:44] LABS: ANION GAP 13.5 mmol/L (8-16); CALCIUM 8.1 mg/dL (8.5-10.1); CARBON DIOXIDE 28.4 mmol/L (21.0-32.0); CREATININE - SERUM 1.1 mg/dL (0.6-1.3); POTASSIUM - SERUM 3.9 mmol/L (3.5-5.1)
[2018-12-30 07:58] VITALS: BP 107/55
[2018-12-30 13:34] VITALS: BP 122/70
[2018-12-30 16:00] VITALS: BP 140/70
--- NOTE | 2018-12-30 19:20 | NUR ---
PATIENT RESTING IN BED AND DENIES NEEDS AT THIS TIME. NO S/S OF DISTRESS. BED IN LOWEST POSITION AND CALL LIGHT WITHIN REACH. ENCORUAGED THE PATIENT TO CALL IF SHE HAS NEEDS. WILL CONTINUE TO MONITOR.
[2018-12-30 19:22] VITALS: BP 112/43
[2018-12-31 00:36] VITALS: BP 141/55
--- NOTE | 2018-12-31 02:28 | NUR ---
PATIENT RESTING IN BED WITH EYES CLOSED AND NO S/S OF DISTRESS. BED IN LOWEST POSITION AND CALL LIGHT WITHIN REACH. WILL CONTINUE TO MONITOR.
[2018-12-31 04:43] VITALS: BP 126/78
[2018-12-31 06:51] LABS: BASOPHILS 0.5 % (0-2); EOSINOPHILS 2.8 % (0-7); HEMATOCRIT 38.5 % (36.0-48.0); HEMOGLOBIN 12.3 g/dL (12-16); IMMATURE GRANULOCYTES 0.1 % (0-5); LYMPHOCYTES 27.5 % (15-50); MCH 30.6 pg (26.0-34.0); MCHC 31.9 g/dL (31.0-37.0); MCV 95.8 fL (80.0-100.0); MEAN PLATELET VOLUME 9.5 fL (7.4-10.4); MONOCYTES 9.7 % (2-11); NEUTROPHILS 59.4 % (40-80); RBC 4.02 10x6/uL (4.00-5.40); RDW 14.6 % (11.5-14.5); WBC 8.1 10x3/uL (4.8-10.8)
[2018-12-31 06:55] LABS: PLATELET COUNT 247 10x3/uL (130-400)
--- NOTE | 2018-12-31 07:10 | NUR ---
INITIAL ROUNDING, PATIENT IS AWAKE AND WALKING AROUND IN HER ROOM. SHE DENIES PAIN, ON O2 VIA NC, NO SOB NOTED. STATES "I FEEL SO GOOD TODAY"
[2018-12-31 07:14] LABS: ANION GAP 10.2 mmol/L (8-16); CALCIUM 8.5 mg/dL (8.5-10.1); CARBON DIOXIDE 33.9 mmol/L (21.0-32.0); CREATININE - SERUM 1.1 mg/dL (0.6-1.3); POTASSIUM - SERUM 4.1 mmol/L (3.5-5.1)
[2018-12-31] MEDS ORDERED: LASIX40 MG PO (07:52)
[2018-12-31 08:51] VITALS: BP 129/53
--- NOTE | 2018-12-31 09:51 | NUR ---
REMOVED THE IV FROM THE LEFT AC, CATH INTACT. REMOVED THE TELE MONITOR. PATIETN WAITING FOR HER RIDE TO GET OUT OF [facility] BEFORE SHE GETS PICKED UP, SHE REPORTS AFTER LUNCH.
--- NOTE | 2018-12-31 11:15 | NUR ---
PATIENT ASSISTED TO DRESS, PACK UP BELONGINGS, WHEELED TO THE FRONT DOOR AT THIS TIME VIA WHEELCHAIR, ESCORTED BY MANUFACTURING TECHNOLOGY PROFESSOR. PATIENTS FRIEND HERE TO PICK HER UP
--- NOTE | 2019-01-01 13:59 | MORECARE ---
CASE MANAGEMENT DISCHARGE SUMMARY PATIENT: JOLLY CALLAHAN UNIT: [id number] ADM DATE: 12/28/18 AGE: 73 : 45 SEX: F ROOM/BED: D.1204 AUTHOR: VERO LUONG PHYSICIAN: REFERRING PHYSICIAN: BERTHA HERNANDEZ MD DATE OF SERVICE: 01/01/19 Discharge Plan Patient Name: JOLLY CALLAHAN Facility: [facility]:[place] : 1945 Planned Disposition: Home Anticipated Discharge Date: 12/31/18 Discharge Date: 12/31/2018 Expected LOS: 3 Initial Reviewer: [email or web address] Initial Review Date: 12/28/2018 Generated: 01/01/19 2:58 pm Patient Name: JOLLY CALLAHAN Page [phone] at 1359 All edits/amendments must be made on the electronic document DICTATION DATE: 01/01/19 1358 OPTICAL INSTRUMENTS SUPERVISOR: JERRI 01/01/19 1358 RPT#: [id number] DC DATE:12/31/18 STATUS: DIS IN [facility] [address] [place] [address] END OF REPORT
== END 2018-12-31 11:16 | disposition home or self-care (01) | DRG 291 ==
LOC: D.ER 00:35 → D.M3 03:33
PROVIDERS: Family Medicine; ADMIT Internal Medicine Nephrology; ATTEND Internal Medicine Nephrology
DX: I11.0 Hypertensive heart disease with heart failure (principal); J96.01 Acute respiratory failure with hypoxia; I48.92 Unspecified atrial flutter; I50.33 Acute on chronic diastolic (congestive) heart failure; I48.91 Unspecified atrial fibrillation; E78.5 Hyperlipidemia, unspecified; I25.10 Atherosclerotic heart disease of native coronary artery without angina pectoris; E11.9 Type 2 diabetes mellitus without complications; F32.9 Major depressive disorder, single episode, unspecified; F41.9 Anxiety disorder, unspecified

== ENCOUNTER → 2019-01-31 10:27 | Outpatient (CLI) | payer MEDICARE ==
[2018-12-29 10:22] VITALS: BMI 49.7
[~2019-01-31 10:27] MED LIST changes: +K-TAB10 MEQ PO; +LASIX20 MG PO
== END | disposition home or self-care (01) ==
LOC: D.HCCARDIO 10:27
PROVIDERS: ATTEND Internal Medicine Rheumatology
DX: I25.10 Atherosclerotic heart disease of native coronary artery without angina pectoris (principal)

== ENCOUNTER → 2019-01-31 17:00 | Outpatient (CLI) | payer MEDICARE ==
[2018-12-29 10:22] VITALS: BMI 49.7
--- NOTE | 2019-02-03 09:58 | EC ---
PATIENT:JOLLY CALLAHAN DATE OF SERVICE: 01/31/19 SEX: F MEDICAL RECORD: [id number] DATE OF : 45 LOCATION:[facility] AGE OF PATIENT: 73 ADMISSION DATE: 01/31/19 REFERRING PHYSICIAN: INTERPRETING PHYSICIAN: VERN NEGRO MD ECHOCARDIOGRAM REPORT ECHO CHARGES Date: CLINICAL DIAGNOSIS: ECHOCARDIOGRAPHIC MEASUREMENTS (adult normal given) AC root (d.<3.7cm) cm LV Septum d (<1.2 cm> cm Valve Excursion cm LV Septum (systole) cm Left Atria (s.<4.0cm> cm LVPW d(<1.2cm) cm RV (d.<2.3cm) cm LVPW (sytole) cm LV diastole(<5.6CM) cm MV E-F(>70mm/sec) cm LV systole cm LVOT Diameter cm MV exc.(>10mm) cm Est.ejection fraction (50-75%) % DOPPLER: LVIT cm/sec A cm/sec E cm/sec LA cm/sec RVSP mmHg LVOT cm/sec AOP1/2T m/s Asc. Ao cm/sec RVOT cm/sec RA cm/sec PA cm/sec AV Gradient Peak mmHg AV Mean mmHg AV Area cm MV Gradient Peak mmHg MV Mean mmHg MV Area cm COMMENTS: Professor Of Oceanography: Stockroom Attendant: RONNIE# Pericardial Effusion DATE OF SERVICE: 01/31/2019 Adequate 2D, color flow and spectral Doppler, and M-Mode. No LVH. LV internal dimension is normal. Wall motion is normal. EF is greater than or equal to 55%. Aortic valve is tricuspid. No evidence of stenosis by Doppler interrogation. Left atrium is dilated at 4.5 cm. Mitral valve shows no prolapse. Mild MR. Right-sided chambers grossly normal. Mild TR. TRANSINT:[id number] Voice Confirmation ID: [id number] DOCUMENT ID: [id number] ECHOCARDIOGRAM REPORT [id number] JOLLY CALLAHAN VERN NEGRO MD at 0958 CC: [id number] DICTATION DATE: 02/01/19 1303 ATTORNEY LAW CLERK: 02/01/19 1358 DEP CLI 01/31/19 [place] [id number]
== END | disposition home or self-care (01) ==
LOC: D.MAMMO 09:00
PROVIDERS: ATTEND Family Medicine
DX: Z12.31 Encounter for screening mammogram for malignant neoplasm of breast (principal)

== ENCOUNTER 2020-02-18 18:10 | Emergency (ER) | payer MEDICARE ==
[~2020-02-18] VITALS: Ht 154.9 cm; Wt 109.1 kg
[2020-02-18 18:47] VITALS: Ht 154.9 cm; Wt 109.1 kg
[2020-02-18 19:13] LABS: BASOPHILS 0.2 % (0-2); EOSINOPHILS 0.9 % (0-7); HEMATOCRIT 42.1 % (36.0-48.0); HEMOGLOBIN 13.6 g/dL (12-16); IMMATURE GRANULOCYTES 0.2 % (0-5); LYMPHOCYTES 9.4 % (15-50); MCH 31.2 pg (26.0-34.0); MCHC 32.3 g/dL (31.0-37.0); MCV 96.6 fL (80.0-100.0); MEAN PLATELET VOLUME 9.9 fL (7.4-10.4); MONOCYTES 11.3 % (2-11); PLATELET COUNT 199 10x3/uL (130-400); RBC 4.36 10x6/uL (4.00-5.40); RDW 14.1 % (11.5-14.5); WBC 12.1 10x3/uL (4.8-10.8)
[2020-02-18 19:24] LABS: CALC OSMOLALITY 278 mosm/kg (275-300); CALCIUM 8.6 mg/dL (8.5-10.1); CARBON DIOXIDE 31.5 mmol/L (21.0-32.0); CHLORIDE - SERUM 100 mmol/L (98-107); CREATININE - SERUM 1.3 mg/dL (0.6-1.3); GLUCOSE 132 mg/dL (74-106); POTASSIUM - SERUM 4.5 mmol/L (3.5-5.1); SODIUM 135 mmol/L (136-145); UREA NITROGEN 32 mg/dL (7-18); eGFR NON AFRICAN AMERICAN 42 mL/min (90-120)
[2020-02-18 19:25] LABS: APTT 28.1 SECONDS (22.8-39.4); INR 1.05 (0.85-1.17); PROTIME 13.6 SECONDS (11.6-15.0)
[2020-02-18 19:41] LABS: ALBUMIN 3.2 g/dL (3.4-5.0); ALKALINE PHOSPHATASE 99 U/L (30-120); ALT (SGPT) 20 U/L (10-68); BILIRUBIN - TOTAL 1.29 mg/dL (0.2-1.3); CKMB 0.5 U/L (0.0-3.6); CREATINE KINASE 32 UL (21-215); MAGNESIUM - SERUM 1.7 mg/dL (1.8-2.4); PROTEIN - SERUM 7.9 g/dL (6.4-8.2); TROPONIN-I < 0.017 ng/mL (0.000-0.060)
[2020-02-18 20:48] LABS: BILIRUBIN NEGATIVE (NEGATIVE); GLUCOSE NEGATIVE (NEGATIVE); KETONE NEGATIVE (NEGATIVE); NITRITE POSITIVE (NEGATIVE); UROBILINOGEN NORMAL (NORMAL); WHITE CELLS - URINE 25-50 /hpf (NEGATIVE)
[2020-02-18 20:49] LABS: BACTERIA MANY /hpf (NEGATIVE); EPITHELIAL CELLS 0-5 /hpf (0-5); RED CELLS - URINE 0-5 /hpf (0-5)
[2020-02-18] MEDS ORDERED: LEVOFLOXACIN500 MG PO (21:38)
[2020-02-18 23:42] VITALS: BP 118/52
== END 2020-02-18 23:00 | disposition home or self-care (01) ==
LOC: D.ER 18:10
PROVIDERS: Emergency Medicine
DX: N39.0 Urinary tract infection, site not specified (principal); I50.9 Heart failure, unspecified; E11.9 Type 2 diabetes mellitus without complications; I25.2 Old myocardial infarction; R68.84 Jaw pain; R11.0 Nausea

== ENCOUNTER → 2020-07-16 13:05 | Outpatient (CLI) | payer MEDICARE ==
[2020-02-18 18:47] VITALS: BMI 45.4
[~2020-07-16 13:05] MED LIST changes: +LEVOFLOXACIN500 MG PO
== END | disposition home or self-care (01) ==
LOC: D.HCCECHO 07-02 10:30
PROVIDERS: ATTEND Internal Medicine Interventional Cardiology
DX: I25.10 Atherosclerotic heart disease of native coronary artery without angina pectoris (principal)

== ENCOUNTER 2021-03-23 09:36 | Inpatient (IN) | payer MEDICARE ==
[~2021-03-23] VITALS: Ht 154.9 cm; Wt 106.5 kg
--- NOTE | ~2021-03-23 | HEMODYNAMI ---
PATIENT:JOLLY CALLAHAN MEDICAL RECORD: [id number] : 45 LOCATION:[facility] D.2109 ADMISSION DATE: 03/23/21 Generatedon:116:21 Patient name: JOLLY CALLAHAN Patient #: [id number] SSN: [id number] : 1945 Date of study: 03/24/2021 Page: Of Hemodynamic Procedure Report Patient Data Patient Demographics Procedure consent was obtained First Name: JOLLY Gender: Female Last Name: LONDON : 1945 Middle Initial: NURIA Age: 75 year(s) Patient #: [id number] Race: SSN: [id number] Additional ID: [id number] Contact details Address: [address] [place] [address] State: [place] City: [facility] Zip code: [address] Past Medical History Allergies Allergen Reaction Date Comments Reported Other allergy 07/05/2018 SULFA, LATEX, NATURAL RUBBER Other allergy 03/24/2021 SULFA,LATEX, NATURAL FIBER Admission Admission Data Admission Date: 03/23/2021 Admission Time: 15:02 Arrival Date: 03/24/2021 Arrival Time: 0:00 Admit Source: Other Insurance Payor: Medicare Room #: D.2109 [facility] #: [id number] Height (in.): 61 BSA: 2.11 (m2) Height (cm.): 154.94 BMI: 49.23 (kg/m2) Weight (lbs.): 260.54 Weight (kg.): 118.18 Lab Results Lab Result Date: 03/24/2021 Lab Result Time: 0:00 Biochemistry Name Units Result Min Max BUN mg/dl 29 --(----)-* 7 18 CK-MB ng/ml 0.6 --(*---)-- 0 3.6 Creatinine mg/dl 1.3 --(---*)-- 0.6 1.3 eGFR ml/min 42 *-(----)-- 90 120 NONAFRICAN Troponin l ng/ml 0.017 --(-*--)-- 0 0.06 CBC Name Units Result Min Max Hematocrit % 41.9 -*(----)-- 42 54 Hemoglobin g/dl 13.9 --(*---)-- 13.5 17.5 Procedure Procedure Types Cath Procedure Diagnostic Procedure LHC LH w/Coronaries FFR/IVUS FFR Initial Sedation Charges Moderate Sedation 25-39 minutes PCI Procedure Coronary Stent Coronary Stent Initial Hemochron ACT Test Procedure Description Procedure Date Procedure Date: 03/24/2021 Procedure Start Time: 15:48 Procedure End Time: 16:18 Procedure Staff Name Function Venancio Cash MD Performing Physician Bianca Newsome RT Monitor Kathi Soler RT Scrub Rudy Zavala RN Nurse Procedure Data Cath Procedure Fluoroscopy Diagnostic fluoroscopy Total fluoroscopy Time: 4.8 time: 4.8 min min Diagnostic fluoroscopy Total fluoroscopy dose: dose: 1240 mGy 1240 mGy Contrast Material Contrast Material Type Amount (ml) Isovue 370 121 Entry Location Entry Primary Successful Side Size Upsize Upsize Entry Closure Succes sful Closure Location (Fr) 1 (Fr) 2 (Fr) Remarks Device Remarks Femoral Right 5 Fr 6 Fr Exoseal artery Short Estimated blood loss: 10 ml Diagnostic catheters Device Type Used For End Catheter Placement MULTIPACK JL 4.0 5Fr Procedure catheter MULTIPACK 3DRC 5Fr Procedure catheter MULTIPACK Pigtail 5 Fr Procedure catheter Procedure Complications No complications Procedure Medications Medication Administration Route Dosage 0.9% NaCl I.V. 100 ml/hr Oxygen etCO2 Nasal cannula 2 l/min Heparin Flush Bag added to field 2 bags (1000units/500ml NS) Lidocaine 2% added to field 20 Benadryl I.V. 50 mg Versed I.V. 1 mg Fentanyl I.V. 50 mcg Vasotec I.V. 2.5 mg Heparin Bolus I.V. 2500 units Heparin Bolus I.V. 5000 units Versed I.V. 0.5 mg Fentanyl I.V. 25 mcg Hemodynamics Rest BSA: 2.11 (m2) HGB: 13.9 (g/dl) O2 Consumption: Estimated: 187.38 (ml/min) O2 Co nsumption indexed: Estimated:88.81 (ml/min/m) Heart Rate: 64 (bpm) Pressure Samples Time Site Value (mmHg) Purpose Heart Use Rate(bpm) 15:55 LV 135/-28,2 Snapshot 58 15:56 AO 177/72(112) Pullback 66 Gradients Valve Time Site Site 2 Mean SEP/DFP Peak To Heart Use 1 (mmHg) (sec/min) Peak Rate (mmHg) (bpm) Aortic 15:56 LV AO 66 177/72(112) Snapshots Pre Cath Intra NCS Post Cath Vital Signs Time Heart Resp SPO2 etCO2 NIBP (mmHg) Rhythm Pain Sedation Rate (ipm) (%) (mmHg) Status Level (bpm) 15:27:16 59 10 98 37.5 167/73(124) NSR 0 (11) 10(A) , No pain 15:31:45 60 17 95 39 158/71(122) NSR 0 (11) 10(A) , No pain 15:36:07 57 12 92 46.5 148/71(128) NSR 0 (11) 10(A) , No pain 15:41:35 60 22 93 45.7 179/76(132) NSR 0 (11) 10(A) , No pain 15:46:07 57 14 89 44.2 171/80(137) NSR 0 (11) 10(A) , No pain 15:51:47 60 12 96 42.7 179/82(137) NSR 0 (11) 10(A) , No pain 15:57:21 64 19 94 45.7 192/72(141) NSR 0 (11) 10(A) , No pain 16:02:04 65 11 94 45.7 188/77(146) NSR 0 (11) 10(A) , No pain 16:06:42 58 23 94 44.9 189/75(126) NSR 0 (11) 10(A) , No pain 16:11:21 58 20 95 48.7 198/80(151) NSR 0 (11) 10(A) , No pain 16:15:59 58 21 95 34.4 188/78(138) NSR 0 (11) 10(A) , No pain 16:20:58 60 13 97 38.9 Measuring NSR 0 (11) 10(A) , No pain Medications Time Medication Route Dose Verified Delivered Reason Notes Effectiveness by by 15:23:40 0.9% NaCl I.V. 100 Rudy Rudy Per physician ml/hr Lucas Zavala RN RN 15:23:52 Oxygen etCO2 2 Rudy Rudy for low 02 sats Nasal l/min Lucas Zavala cannula RN RN 15:24:04 Heparin Flush added 2 Rudy Rudy used for Bag to bags Lucas Zavala procedure (1000units/500ml RN RN NS) 15:24:14 Lidocaine 2% added 20ml Rudy Rudy for local to vial Lornicolasa Zavala anesthetic RN RN 15:27:14 Benadryl I.V. 50 mg Rudy Rudy Per physician Lucas Zavala RN RN 15:43:21 Versed I.V. 1 mg Rudy Rudy for sedation Lucas Zavala RN RN 15:43:40 Fentanyl I.V. 50 Rudy Rudy for sedation mcg Lucas Zavala RN RN 15:55:08 Vasotec I.V. 2.5 Rudy Rudy for mg Lucas Zavala hypertension RN RN 15:59:46 Heparin Bolus I.V. 2,500 Rudy Rudy for units Lorigan Lucas anticoagulation RN RN 16:10:28 Heparin Bolus I.V. 5000 Rudy Rudy for units Lorigan Lornicolasa anticoagulation RN RN 16:19:21 Versed I.V. 0.5 Rudy Rudy for sedation mg Lucas Zavala RN RN 16:19:37 Fentanyl I.V. 25 Rudy Rudy for sedation mcg Lucas Zavala RN contracting executive Log Time Note 14:53:20 Informed consent obtained and on chart 14:54:03 Procedure Status Urgent Heart Cath (IP). 14:54:06 Plan of Care:Hemodynamics will remain stable., Cardiac rhythm will remain stable., Comfort level will be maintained., Respiratory function will remain adequate., Patient/ family verbilizes understanding of procedure., Procedure tolerated without complication., Recovers from procedure without complications.. 14:54:07 Time tracking: Regular hours (M-F 7:00 - 5:00) 14:54:09 Kathi Soler RT(R) sent for patient. Start room use. 14:58:22 Admit Source: Other 14:58:31 ACC Patient presents with Unstable Angina CCS Anginal Class 2--Slight limitation of ordinary activity. 14:59:14 H&P Date Dictated: 03/24/2021 Within 30 days and on chart.. 14:59:16 Family unavailable. 14:59:17 Patient NPO since Midnight. 14:59:58 Patient allergic to Other allergySULFA,LATEX, NATURAL FIBER 15:02:24 Alarms reviewed by R. N. 15:02:24 Sharps counted by scrub and verified by R.N. 15:03:03 Diagnostic Cath Status : Elective 15::49 Lab Result : CK-MB 0.6 ng/ml 15::49 Lab Result : Troponin l 0.017 ng/ml 15::49 Lab Result : BUN 29 mg/dl 15::49 Lab Result : Creatinine 1.3 mg/dl 15::49 Lab Result : Hematocrit 41.9 % 15::49 Lab Result : Hemoglobin 13.9 g/dl 15::49 Lab Result : eGFR NONAFRICAN 42 ml/min 15:04:15 Arrival Date: 03/24/2021 12:00:00 AM 15:04:18 Insurance Payor : Medicare 15:04:35 Patient Height : 61 inches 15:04:41 Patient Weight : 260.54 lbs 15:09:32 Patient received from Med II to CCL 2 Alert and oriented. Tansferred to table in Supine position. 15:09:34 Warm blankets applied, and jaspreet hugger turned on for patient comfort. 15:09:34 Correct patient and procedure confirmed by team. 15:09:35 ECG and BP/O2 sat monitors applied to patient. 15:09:46 Full Disclosure recording started 15:18:12 Is the patient allergic to Iodine/contrast media? No. 15:18:14 Was the patient premedicated? Yes 15:18:16 Is patient on blood thinner?Yes 15:18:18 ACC The patient was administered the following blood thiners within the last 24 hours: ACCPlavix 15:18:20 Patient diabetic? Yes. 15:18:22 If diabetic: On Metformin? No 15:18:23 Patient not . Patient is over age 55. 15:18:24 ----Pre-sedation anethsthesia assessment.---- 15:18:27 Previous problem with sedation/anesthesia? No ? 15:18:28 Snore? Unknown 15:18:29 Sleep apnea? Unknown 15:18:31 Deviated septum? No 15:18:31 Opens mouth fully? Yes 15:18:32 Sticks out tongue? Yes 15:18:43 Airway obstruction? Yes CHF 15:18:45 Dentures? No ? 15:18:48 Patient pain scale 0/10 ?. 15:18:52 IV patent on arrival in left antecubital with 0.9% NaCl at [facility]. 15:18:57 Lab results completed and on chart. 15:19:00 Stress Test: no; N/A ? 15:19:04 Right groin area was prepped with chlora-prep and draped in sterile fashion 15:19:08 Vital chart was started 15:19:11 Baseline sample Acquired. 15:19:27 Rhythm: sinus rhythm 15:23:40 0.9% NaCl 100 ml/hr I.V. was administered by Rudy Zavala RN; Per physician; Verbal order read back and verified. 15:23:52 Oxygen 2 l/min etCO2 Nasal cannula was administered by Rudy Zavala RN; for low 02 sats; Verbal order read back and verified. 15:24:04 Heparin Flush Bag (1000units/500ml NS) 2 bags added to field was administered by Rudy Zavala RN; used for procedure; Verbal order read back and verified. 15:24:14 Lidocaine 2% 20ml vial added to field was administered by Rudy Zavala RN; for local anesthetic; Verbal order read back and verified. 15:27:14 Benadryl 50 mg I.V. was administered by Rudy Zavala RN; Per physician; Verbal order read back and verified. 15:38:39 --------ALL STOP TIME OUT------ 15:38:39 Final Timeout: patient, procedure, and site verified with staff and physician. All members of the team are in agreement. 15:38:40 Right groin site verified by team. 15:38:43 Fire Safety Assessment: A--An alcohol-based skin anteseptic being used preoperatively., C--Open oxygen or nitrous oxide is being used., D--An ESU, laser, or fiber-optic light is being used. 15:38:46 Physical assessment completed. ASA score P 2 - A patient with mild systemic disease as per Venancio Cash MD. 15:38:52 3a) 45-59 Moderately reduced kidney function. 15:38:55 Maximum allowable contrast dose (3.7 X eGFR X 0.75)117 ml. 15:38:58 Sedation plan: IV Moderate Sedation Medication:Versed, Fentanyl 15:39:02 Use device set Femoral Dx 15:39:03 ACIST Syringe (72108) opened to sterile field. 15:39:03 Bag Decanter (2002S) opened to sterile field. 15:39:04 Medline Cath Pack ([id number]) opened to sterile field. 15:39:05 ACIST Hand Control (02864) opened to sterile field. 15:39:06 ACIST Manifold (34656) opened to sterile field. 15:39:07 DIAGNOSTIC Multipack 5Fr catheter set (YM1774) opened to sterile field. 15:39:09 SHEATH 5FR [place] (JUL099) opened to sterile field. 15:39:09 EMERALD Guide Wire (298-885) opened to sterile field. 15:39:11 Tegaderm 4 x 4 (1626W) opened to sterile field. 15:43:21 Versed 1 mg I.V. was administered by Rudy Zavala RN; for sedation; Verbal order read back and verified. 15:43:40 Fentanyl 50 mcg I.V. was administered by Rudy Zavala RN; for sedation; Verbal order read back and verified. 15:48:22 Procedure started. 15:48:26 Local anesthetic to right femoral artery with Lidocaine 2% by Venancio Cash MD.INITIAL ACCESS ONLY 15:50:57 A 5 Fr sheath was inserted into the Right Femoral artery 15:51:11 Zero performed for pressure channel P1 15:51:19 A MULTIPACK JL 4.0 5Fr catheter was advanced over the wire and used for Procedure. 15:51:47 Zero performed for pressure channel P1 15:51:56 LCA angiography performed. 15:51:59 Injector settings: Ml/sec: 3, Volume: 6, 15:52:57 Catheter removed. 15:53:01 Zero performed for pressure channel P1 15:53:14 A MULTIPACK 3DRC 5Fr catheter was advanced over the wire and used for Procedure. 15:54:04 RCA angiography performed. 15:54:07 Injector settings: Ml/sec: 3, Volume: 6, 15:54:16 ACCDominant side:Left 15:54:17 Catheter removed. 15:55:03 A MULTIPACK Pigtail 5 Fr catheter was advanced over the wire and used for Procedure. 15:55:08 Vasotec 2.5 mg I.V. was administered by Rudy Zavala RN; for hypertension; Verbal order read back and verified. 15:55:21 LV gram done using MATTA 15:55:41 LV hemodynamics recorded. 15:55:44 Injector settings: Ml/sec: 10, Volume: 20, 15:55:56 EF : 35 % 15:56:00 Catheter removed. 15:56:02 Proceeding to intervention. 15:56:33 Use device set SRUTHI PCI 15:56:38 INFLATOR Merit BasixCompak (SL5847) opened to sterile field. 15:56:41 SHEATH 6FR [place] (LMI313) opened to sterile field. 15:56:45 Dalton OmniWire (44694) opened to sterile field. 15:57:07 Sheath upsized to a 6 Fr Short. 15:57:52 GUIDE 6FR XBLAD 3.5 catheter ([id number]) opened to sterile field. 15:58:43 6 Fr XBLAD 3.5 guide catheter was inserted over the wire 15:59:46 Heparin Bolus 2,500 units I.V. was administered by Rudy Zavala RN; for anticoagulation; Verbal order read back and verified. 16:00:29 Pressure wire advanced. 16:01:36 Wire advanced across lesion. 16:03:50 IFR WIRE REMOVED TO TO MALFUNCTION. 16:05:20 Dalton OmniWire (92825) opened to sterile field. 16:07:56 Pressure wire advanced. 16:07:56 Wire advanced across lesion. 16:09:16 Circ lesion measured at .87 with IFR 16:10:06 Proceeding to intervention. 16:10:28 Heparin Bolus 5000 units I.V. was administered by Rudy Zavala RN; for anticoagulation; Verbal order read back and verified. 16:12:17 Place stent Inflation Number: 1 A ROSALVA RX 3.0 x 12 stent ([id number]) was prepped and advanced across the Prox CX . The stent was deployed at 14 VARINDER for 0:16 (min:sec) . 16:15:08 Stent catheter was removed intact over wire. 16:15:08 Wire removed. 16:15:09 Guide catheter removed. 16:15:12 EXOSEAL 6Fr (EX600) opened to sterile field. 16:15:26 Sheath removed intact; hemostasis achieved with Exoseal to the Right Femoral artery. 16:15:31 Fluoroscopy time 04.80 minutes. 16:15:35 Fluoroscopy dose: 1240 mGy 16:15:35 Flurop Dose total: 1240 16:15:42 Dose Area Product 61525 mGy/cm. 16:15:46 Contrast amount:Isovue 370 121ml. 16:15:49 Maximum allowable dose exceeded? No. 16:15:51 Procedure ended.(Physican Out) 16:15:57 Sharps counted by scrub and verified by R.N. 16:16:01 Post-op/insertion site Right Femoral artery dressed using a 4 x 4 and Tegaderm. 16:16:06 Post right femoral artery:stable, soft, clean and dry 16:16:08 Post Procedure Pulses reassessed and unchanged 16:16:10 Post procedure: right dorsailis pedis pulse 2+ Normal; easily identifiable; not easily obliterated. 16:16:12 Post-procedure physical assessment completed. ASA score P 2 - A patient with mild systemic disease as per Venancio Cash MD. 16:16:15 Post procedure rhythm: unchanged. 16:16:18 Estimated blood loss: 10 ml 16:16:20 Post procedure instruction explained to patient.Patient verbalizes understanding. 16:16:21 Patient needs reinforcement of post procedure teaching. 16:17:09 Procedure type changed to Cath procedure, Diagnostic procedure, C, [facility] w/Coronaries, FFR/IVUS, FFR Initial, Sedation Charges, Moderate Sedation 25-39 minutes, PCI procedure, Coronary Stent, Coronary Stent Initial, Hemochron ACT Test 16:18:01 Procedure and supply charges have been captured, reviewed, submitted and are correct. 16:18:37 Procedure Complication : No complications 16:18:41 [facility] Findings: MVD- PCI performed (see procedure note) 16:18:42 Operative report dictated upon procedure completion. 16:18:43 See physician's report for complete and final results. 16:18:45 Report given to [facility]. 16:18:49 Patient transfered to [facility] with Bed. 16:18:52 Procedure ended. 16:18:52 Full Disclosure recording stopped 16:19:04 ACC-PCI Only Patient was given prescriptions, or instructed by Venancio Cash MD to start/continue the following medications upon discharge: Plavix 16:19:06 End room use (Document Last) 16:19:15 End room use (Document Last) 16:19:21 Versed 0.5 mg I.V. was administered by Rudy Zavala RN; for sedation; Verbal order read back and verified. 16:19:37 Fentanyl 25 mcg I.V. was administered by Rudy Zavala RN; for sedation; Verbal order read back and verified. 16:19:37 End room use (Document Last) 16:19:59 ACT drawn and resulted at 262 seconds. (normal therapeutic range 180-240 seconds). 16:21:18 Vital chart was stopped Intervention Summary Intervention Notes Time ActionType Lesion and Equipment Used Action# Pressure Duration Attributes 16:12:17 [address] stent Prox CX ROSALVA RX 3.0 x 1 14 00:16 12 stent ([id number]) Device Usage Item Name Manufacture Quantity Catalog Hospital Part [facility] Lot# / Number Charge Number Stock Stock Serial# Code ACIST Syringe Acist 1 63794 939033 501142 532877 20 (98092) Medical Systems Inc Bag Decanter Microtek 1 2001S 199098 23518 290308 5 (2001S) Medical Inc. Medline Cath Medline 1 [id number] 788743 04978 728046 5 Pack ([id number]) ACIST Hand Acist 1 57305 028453 659462 460161 5 Control Medical (14704) Systems Inc ACIST Manifold Acist 1 22842 835374 776173 431663 5 (87400) Medical Systems Inc DIAGNOSTIC Cardinal 1 VI6072 318654 36329 973902 30 Multipack 5Fr Health catheter set (GS7494) SHEATH 5FR Terumo 1 HUR867 841662 671318 211009 5 [place] (JTU061) EMERALD Guide Cardinal 1 502-455 932538 392136 916414 5 Wire (502-455) Health Tegaderm 4 x 4 3M 1 1626W 796584 573298 887576 5 (1626W) MULTIPACK JL Cardinal 1 891509 5 4.0 5Fr Health catheter MULTIPACK 3DRC Cardinal 1 686735 5 5Fr catheter Health MULTIPACK Cardinal 1 792174 5 Pigtail 5 Fr Health catheter INFLATOR Merit Merit 1 DI3463 282672 148854 452648 15 BasixCompak Medical (CG8363) SHEATH 6FR Terumo 1 KKW274 369511 246555 151701 40 [place] (GZL384) GUIDE 6FR Cardinal 1 27535306 634121 509117 809628 10 XBLAD 3.5 Health catheter (25271603) Dalton Dalton 2 2437399 635073 36484 9928 5 OmniWire (43820) ROSALVA RX 3.0 x Medtronic 1 [id number] 497003 0203686 928007 5 [id number] 12 stent ([id number]) EXOSEAL 6Fr Cardinal 1 EX600 816949 194414 268126 10 (EX600) Health Signature Audit [place] Stage Time Signature Unsigned Intra-Procedure 03/24/2021 Bianca Newsome 4:19:15 PM RT(R) Intra-Procedure 03/24/2021 Rudy 4:19:37 PM Lucas RN Intra-Procedure 03/24/2021 Venancio Arevalo 4:21:16 PM Saad VELA Signatures Performing Physician : Signature : Venancio Cash MD Date : Time : Monitor : Bianca Newsome Signature : RT Date : Time : Nurse : Rudy Zavala Signature : RN Date : Time : [facility] [address] [place] [address]
[2021-03-23 10:16] LABS: EOSINOPHILS 1.9 % (0-7); HEMATOCRIT 41.9 % (36.0-48.0); HEMOGLOBIN 13.9 g/dL (12-16); LYMPHOCYTES 35.1 % (15-50); MCH 31.1 pg (26.0-34.0); MCHC 33.1 g/dL (31.0-37.0); MCV 93.7 fL (80.0-100.0); MEAN PLATELET VOLUME 7.6 fL (7.4-10.4); MONOCYTES 6.9 % (2-11); NEUTROPHILS 55.1 % (40-80); RBC 4.47 10x6/uL (4.00-5.40); RDW 13.9 % (11.5-14.5); WBC 8.1 10x3/uL (4.8-10.8)
[2021-03-23 10:18] LABS: PLATELET COUNT 269 10x3/uL (130-400)
[2021-03-23 10:24] LABS: CALC OSMOLALITY 288 mosm/kg (275-300); CALCIUM 9.2 mg/dL (8.5-10.1); CARBON DIOXIDE 32.4 mmol/L (21.0-32.0); CHLORIDE - SERUM 102 mmol/L (98-107); CREATININE - SERUM 1.3 mg/dL (0.6-1.3); GLUCOSE 133 mg/dL (74-106); POTASSIUM - SERUM 4.2 mmol/L (3.5-5.1); SODIUM 141 mmol/L (136-145); UREA NITROGEN 29 mg/dL (7-18); eGFR NON AFRICAN AMERICAN 42 mL/min (90-120)
[2021-03-23 10:33] LABS: ALBUMIN 3.2 g/dL (3.4-5.0); ALKALINE PHOSPHATASE 88 U/L (30-120); ALT (SGPT) 16 U/L (10-68); BILIRUBIN - TOTAL 0.81 mg/dL (0.2-1.3); PROTEIN - SERUM 7.6 g/dL (6.4-8.2); TROPONIN-I < 0.017 ng/mL (0.000-0.060)
[2021-03-23 14:55] LABS: CKMB 0.6 U/L (0.0-3.6); CREATINE KINASE 28 UL (21-215)
[2021-03-23 15:01] LABS: TROPONIN-I < 0.017 ng/mL (0.000-0.060)
--- NOTE | 2021-03-23 16:37 | NUR ---
PT TO ROOM FROM ER VIA WHEELCHAIR. NO COMPLAINTS AT PRESENT BUT STATES HERE FOR CHEST PAIN WORSE ON EXERTION. PLANS FOR VACUUM PLASTIC FORMING MACHINE OPERATOR IN MORNING.
[2021-03-23] MEDS ORDERED: GLIMEPIRIDE2 MG PO (16:42)
[2021-03-23] MEDS ORDERED: COREG12.5 MG PO (16:46)
[2021-03-23 17:43] LABS: BASOPHILS 0.8 % (0-2); HEMATOCRIT 41.1 % (36.0-48.0); HEMOGLOBIN 13.7 g/dL (12-16); LYMPHOCYTES 31.1 % (15-50); MCH 30.9 pg (26.0-34.0); MCHC 33.3 g/dL (31.0-37.0); MCV 92.7 fL (80.0-100.0); MEAN PLATELET VOLUME 7.5 fL (7.4-10.4); MONOCYTES 8.6 % (2-11); NEUTROPHILS 57.5 % (40-80); PLATELET COUNT 252 10x3/uL (130-400); RBC 4.44 10x6/uL (4.00-5.40); RDW 13.9 % (11.5-14.5); WBC 7.7 10x3/uL (4.8-10.8)
[2021-03-23 18:09] LABS: ANION GAP 9.5 mmol/L (8-16); CALCIUM 9.1 mg/dL (8.5-10.1); CARBON DIOXIDE 31.2 mmol/L (21.0-32.0); CHOL - HDL RATIO 3.7 ratio (2.3-4.1); CREATININE - SERUM 1.5 mg/dL (0.6-1.3); LDL-HDL RATIO 2.3 ratio (1.5-3.5); POTASSIUM - SERUM 3.7 mmol/L (3.5-5.1)
[2021-03-23 18:14] VITALS: BP 108/78; BMI 45.0
[2021-03-23 21:00] VITALS: BP 184/49
[2021-03-23 21:29] LABS: CKMB 0.7 U/L (0.0-3.6); CREATINE KINASE 38 UL (21-215)
[2021-03-23 21:41] LABS: TROPONIN-I < 0.017 ng/mL (0.000-0.060)
[2021-03-23 23:51] VITALS: BP 140/66
[2021-03-24 02:45] LABS: BASOPHILS 0.9 % (0-2); EOSINOPHILS 1.9 % (0-7); HEMATOCRIT 39.9 % (36.0-48.0); HEMOGLOBIN 13.2 g/dL (12-16); LYMPHOCYTES 33.1 % (15-50); MCH 30.9 pg (26.0-34.0); MCHC 33.1 g/dL (31.0-37.0); MCV 93.3 fL (80.0-100.0); MEAN PLATELET VOLUME 7.7 fL (7.4-10.4); MONOCYTES 9.5 % (2-11); NEUTROPHILS 54.6 % (40-80); PLATELET COUNT 234 10x3/uL (130-400); RBC 4.28 10x6/uL (4.00-5.40); RDW 13.9 % (11.5-14.5); WBC 8.1 10x3/uL (4.8-10.8)
[2021-03-24 03:03] LABS: ALBUMIN 3.1 g/dL (3.4-5.0); ALKALINE PHOSPHATASE 92 U/L (30-120); ALT (SGPT) 19 U/L (10-68); BILIRUBIN - TOTAL 0.45 mg/dL (0.2-1.3); CALC OSMOLALITY 285 mosm/kg (275-300); CALCIUM 8.8 mg/dL (8.5-10.1); CARBON DIOXIDE 34.2 mmol/L (21.0-32.0); CHLORIDE - SERUM 103 mmol/L (98-107); CKMB 0.3 U/L (0.0-3.6); CREATINE KINASE 38 UL (21-215); CREATININE - SERUM 1.7 mg/dL (0.6-1.3); GLUCOSE 109 mg/dL (74-106); MAGNESIUM - SERUM 1.6 mg/dL (1.8-2.4); PHOSPHOROUS 4.3 mg/dL (2.5-4.9); POTASSIUM - SERUM 4.1 mmol/L (3.5-5.1); PROTEIN - SERUM 7.2 g/dL (6.4-8.2); SODIUM 139 mmol/L (136-145); THYROID STIMULATING HORMONE 1.74 uIU/mL (0.36-3.74); TROPONIN-I < 0.017 ng/mL (0.000-0.060); UREA NITROGEN 32 mg/dL (7-18); eGFR NON AFRICAN AMERICAN 31 mL/min (90-120)
[2021-03-24 04:00] VITALS: BP 149/60
--- NOTE | 2021-03-24 05:51 | NUR ---
I have reviewed this patient and I concur with the Shift Assessment completed by the Licensed Practical Nurse today this shift.
--- NOTE | 2021-03-24 06:50 | NUR ---
PATIENT AWAKE AND ALERT. NO CURRENT PAIN OR DISTRESS NOTED. PATIENT SPOKE ABOUT THE PROCEDURE TODAY KNOWLEDGEABLY. RESP EVEN AND UNLABORED.
[2021-03-24 07:55] VITALS: BP 134/57
--- NOTE | 2021-03-24 08:38 | NUR ---
PATIENT RESTING IN BED. RESP EVEN AND UNLABORED. NO CURRETN PAIN OR DISTRESS VOICED. LUNG SOUNGS CLEAR. HEART SOUNDS REGULAR RATE AND RYTHYM. PATIENT HAS BEEN PREPPED AND NPO AFTER MIDNIGHT. CONSENTS SIGNED AND IN CHART.
[2021-03-24 12:22] VITALS: BP 156/62
[2021-03-24 13:00] VITALS: Ht 154.9 cm; Wt 106.5 kg
[2021-03-24 21:04] VITALS: BP 111/51
[2021-03-25 00:14] VITALS: BP 135/88
--- NOTE | 2021-03-25 02:22 | NUR ---
03/24/211999 PT REMAINS ON BEDREST S/P PCI TO RIGHT GROIN. NO HEMATOMA, PPP, WARM TO TOUCH. DRESSING REMAINS C/D/I TO RIGHT GROIN. ALERT & ORIENTED. DENIES ANY PAIN. ON ROOM AIR. ATE DINNER WITHOUT DIFFICULTY. 2029- PT UP ON EDGE OF BED, NAKED STATING THAT SHE HAS TO GET TO THE BATHROOM D/T SHE'S GOING TO MESS THE BED. ASSISTED PT TO BATHROOM, RIGHT GROIN IS GOOD. PT THEN BACK TO BED QUICKLY D/T SHE DOESN'T WANT TO MESS UP HER LEG. 2034-UPON GETTING SUPPLIES FOR PT BED CHANGE SHE WAS BACK UP IN THE RESTROOM STATING THAT SHE CULDN'T HOLD IT ANY LONGER. LARGE LOOSE STOOL ON BED & SMEARED ON PT/TOILET. ASSISTED PT WITH CLEANING SELF UP & CHANGING BED LINENS. SHE BECAME ANXIOUS STANDING & HYPERVENTILATING. ASSISTED TO BED. WILL CONTINUE TO MONITOR.
[2021-03-25 04:36] VITALS: BP 131/55
[2021-03-25 06:18] LABS: BASOPHILS 0.6 % (0-2); EOSINOPHILS 1.7 % (0-7); HEMATOCRIT 42.8 % (36.0-48.0); HEMOGLOBIN 14.1 g/dL (12-16); LYMPHOCYTES 30.6 % (15-50); MCHC 33.1 g/dL (31.0-37.0); MCV 93.7 fL (80.0-100.0); MEAN PLATELET VOLUME 7.7 fL (7.4-10.4); MONOCYTES 9.1 % (2-11); RBC 4.56 10x6/uL (4.00-5.40); RDW 14.1 % (11.5-14.5); WBC 8.5 10x3/uL (4.8-10.8)
[2021-03-25 06:44] LABS: PLATELET COUNT 281 10x3/uL (130-400)
[2021-03-25 06:47] LABS: ALBUMIN 3.4 g/dL (3.4-5.0); ANION GAP 9.9 mmol/L (8-16); BILIRUBIN - TOTAL 0.5 mg/dL (0.2-1.3); CALCIUM 9.3 mg/dL (8.5-10.1); CARBON DIOXIDE 30.9 mmol/L (21.0-32.0); CREATININE - SERUM 1.5 mg/dL (0.6-1.3); PHOSPHOROUS 4.3 mg/dL (2.5-4.9); POTASSIUM - SERUM 3.8 mmol/L (3.5-5.1); PROTEIN - SERUM 7.9 g/dL (6.4-8.2)
[2021-03-25 06:50] LABS: MAGNESIUM - SERUM 2.2 mg/dL (1.8-2.4)
--- NOTE | 2021-03-25 07:00 | NUR ---
Lying in bed, awake/alert/oriented, T/R self ad pankaj, cont of B/B with use of bedpan ad pankaj, denies pain/other discomfort at this time, call light/phone/water within reach, no s/s of acute distress observed.
[2021-03-25 08:10] VITALS: BP 135/63
[2021-03-25 10:50] VITALS: BP 98/40
[2021-03-25] MEDS ORDERED: ALDACTONE25 MG PO (11:36)
--- NOTE | 2021-03-25 15:35 | NUR ---
Provided written/verbal discharge instructions to which the pt and family verbally stated understanding
--- NOTE | 2021-03-25 16:07 | NUR ---
DC'd IV access and cardiac panel monitor
--- NOTE | 2021-03-25 16:27 | NUR ---
DC'd home to self care in stable condition via w/c accompanied by hospital staff and family member, no s/s of acute distress observed.
--- NOTE | 2021-03-26 08:19 | OP ---
PATIENT NAME: JOLLY CALLAHAN MEDICAL RECORD: [id number] :45 LOCATION:D.M2 D.2109 ADMISSION DATE:03/24/21 SURGEON: VERN NEGRO MD DATE OF OPERATION: 03/24/2021 PROCEDURE PERFORMED: Left heart cath, selective coronary angiography, IFR wire to the circ, stenting to circ, right femoral artery approach. CATHETERS: A 5-Austrian sheath, 5/4 left and right Adriana, 5/4 pig. The procedure was well tolerated, the patient returned to the sanchez, sheath removed, ExoSeal placed. FINDINGS: Left ventriculography in 30-degree MATTA view shows marked inferobasilar hypokinesis. Overall function is reduced at 35%. CORONARY ANATOMY: Left main: Left main is free of disease. LAD: Widely patent, previously placed stent with no evidence of restenosis. No progression of [place] disease. Circumflex: Has a new lesion in its mid portion of 80%. This was confirmed via IFR wire was 0.9. Right coronary artery: Totally occluded, fills well via left to right collaterals. PLAN: Intervention to circumflex momentarily. DESCRIPTION OF PROCEDURE: A 5-Austrian sheath was exchanged for a 6-Austrian sheath. XB LAD guide catheter provided good guide catheter support followed by 300 cm iFR wire as described above. After confirmation of flow restrictive, a 3.0 x 12 mm Yon drug-eluting stent was placed up to 14 atmospheres for 45 seconds. Final angiography showed excellent resolution of 80% stenosis. No significant residual. BARBARA flow was 3 throughout the procedure. Heparin and Integrilin were used during the case, sheath closed with ExoSeal device. Plavix loaded in lab. TRANSINT:[id number] Voice Confirmation ID: [id number] DOCUMENT ID: [id number] VERN NEGRO MD at 0819 CC: [id number] DICTATION DATE: 03/24/21 162 [facility] NURSE: 03/25/21 0340 DIS IN 03/25/21 [facility] [address] [place] [id number]
== END 2021-03-25 16:27 | disposition home or self-care (01) | DRG 247 ==
LOC: D.ER 09:36 → D.M2 15:02 → OBSVTIME 15:03 → D.M2 15:55
PROVIDERS: Emergency Medicine; Internal Medicine Interventional Cardiology; ADMIT Emergency Medicine; ATTEND Emergency Medicine
PROC: B2151ZZ Fluoroscopy of Left Heart using Low Osmolar Contrast (ICD-10-PCS; 2021-03-24)
PROC: 4A023N7 Measurement of Cardiac Sampling and Pressure, Left Heart, Percutaneous Approach (ICD-10-PCS; 2021-03-24)
PROC: 027034Z Dilation of Coronary Artery, One Artery with Drug-eluting Intraluminal Device, Percutaneous Approach (ICD-10-PCS; principal; 2021-03-24 14:30)
PROC: B2111ZZ Fluoroscopy of Multiple Coronary Arteries using Low Osmolar Contrast (ICD-10-PCS; 2021-03-24 14:30)
DX: I25.110 Atherosclerotic heart disease of native coronary artery with unstable angina pectoris (principal); I48.0 Paroxysmal atrial fibrillation; I10 Essential (primary) hypertension; E78.5 Hyperlipidemia, unspecified; R55 Syncope and collapse; E11.65 Type 2 diabetes mellitus with hyperglycemia; F41.9 Anxiety disorder, unspecified; F32.9 Major depressive disorder, single episode, unspecified; M19.90 Unspecified osteoarthritis, unspecified site